=== PATIENT | female | born 2000 | race Caucasian/White ===

== ENCOUNTER 2020-01-25 22:08 | Emergency (ER) | payer OTHER, SELFPAY ==
[2020-01-25 22:11] VITALS: BP 144/74; PULSE 86; RESP 20; TEMP 36.2; O2SAT 100
--- NOTE | 2020-01-25 22:14 | ED_ITS ---
HPI - Allergic Reaction General Chief complaint: Allergic Reaction Stated complaint: possible allergic reaction Time Seen by Provider: 01/25/20 22:13 History of Present Illness HPI narrative: Pruritic rash to the axillae, thighs and back for a few days. Seemed to be getting worse this evening and she had a scratchy feeling in her throat. She took 50 mg benadryl prior to arrival and feels like the rash has improved. She has had similar rashes in the past. No new products, foods, or oth er exposures that she can think of. No SOB, dysphagia, light headedness. Related Data Allergies Allergy/AdvReac Type Severity Reaction Status Date / Time No Known Allergies Allergy Verified 01/25/20 22:27 Review of Systems Review of Systems: All systems reviewed & are unremarkable except as noted in HPI and below Constitutional: Constitutional: Denies chills and Denies fever(s) ENT: Denies dysphagia Cardiovascular: Cardiovascular: Denies chest pain Respiratory: Respiratory: Denies dyspnea Gastrointestinal: Gastrointestinal: Denies nausea Musculoskeletal: Musculoskeletal: Denies myalgias Neurologic: Denies weakness PMFSH Social History Social History (Updated 01/25/20 @ 22:28 by Robert Delcid MD) Smoking status: Never smoker Substance use: never Gender identity (if verbalized by the patient): Female Exam Const: General: healthy appearing, no acute distress and alert Nutritional Appearance: well nourished Orientation/consciousness: patient oriented x3 HENMT: Head: normal to inspection Resp: Effort & Inspection: normal respiratory effort Auscultation: clear to auscultation bilaterally Cardio: Rate: regular rate Rhythm: regular rhythm Skin: Other: mildly erythematous papular rash to bilateral axillae, inguinal creases, and back. Extrem: General: normal to inspection and no edema Course Vital Signs Vital signs: Vital Signs Temperature 36.2 C L 01/25/20 22:11 Pulse Rate 86 01/25/20 22:11 Respiratory Rate 20 01/25/20 22:11 Blood Pressure 144/74 H 01/25/20 22:11 Pulse Oximetry 100 01/25/20 22:11 Temperature 36.2 C L 01/25/20 22:11 Pulse Rate 86 01/25/20 22:11 Respiratory Rate 20 01/25/20 22:11 Blood Pressure 144/74 H 01/25/20 22:11 Pulse Oximetry 100 01/25/20 22:11 MDM - Allergic Reaction MDM Narrative Medical decision making narrative: There is no indication of anaphylaxis or other emergent rash. Unclear what is causing her rash. Will treat as allergic reaction. Discussed the need for follow-up and allergy testing should she c ontinue to experience these type of symptoms. Differential Diagnosis Differential diagnosis: Likely allergic reaction, contact dermatitis and urticaria Discharge Plan Discharge Clinical Impression: Urticaria Patient Disposition: Home, Self-Care Condition: Stable Instructions: Urticaria (ED) Prescriptions: New prednisone 20 mg tablet 60 mg PO DAILY 4 Days Qty: 12 RF: 0 Follow-up/Referrals: UNKNOWN,DOCTOR [Primary Care Provider] -
[2020-01-25] MEDS: predniSONE 20 MG TABLET 60 MG PO (22:27)
== END 2020-01-25 23:00 | disposition home or self-care (01) ==
PROVIDERS: Emergency Provider Emergency Medicine
DX: L50.9 Urticaria, unspecified (principal)
CPT/HCPCS: 99283; J7512

== ENCOUNTER 2020-05-18 13:40 | Emergency (ER) | payer OTHER, SELFPAY ==
[2020-05-18 13:57] VITALS: BP 144/75; PULSE 88; RESP 18; TEMP 36.9; O2SAT 100
--- NOTE | 2020-05-18 14:13 | ED.BACK ---
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 Patient denies other injury or complaint of recent illness. Patient has not taken anything for symptoms and presents per private vehicle in no distress Related Data Allergies Allergy/AdvReac Type Severity Reaction Status Date / Time No Known Allergies Allergy Verified 05/18/20 14:00 Review of Systems Review of Systems: All systems reviewed & are unremarkable except as noted in HPI and below PMFSH Social History Social History Smoking status: Never smoker Substance use: never Gender identity (if verbalized by the patient): Female Exam Narrative: Exam Narrative: GENERAL: Well-appearing, well-nourished, and in no acute distress. HEAD: Normocephalic, atraumatic. EYES: PERRLA and EOMI. ENT: Nares clear, no rhinorrhea or epistaxis. Mucous membranes moist. Oropharynx without tonsillar hypertrophy exudate or other lesions. NECK: Supple. No adenopathy or masses. CHEST: Clear to auscultation. No respiratory distress. No wheezes rales or rhonchi HEART: Regular rate and rhythm. No murmur heard. Normal peripheral pulses. EXTREMITIES: Normal range of motion. No edema. Tenderness of the paraspinal thoracic musculature no deformities noted SKIN: Warm, dry, no rash. NEURO: No focal deficits. Alert and oriented x3. Cranial nerves II through XII grossly intact. Normal speech and gait PSYCH: Normal mood and affect. Course Course Emergency Course: Patient in the room in no distress aware of case findings treatment plan and diagnosis Vital Signs Vital signs: Vital Signs Temperature 98.4 F 05/18/20 13:57 Pulse Rate 88 05/18/20 13:57 Respiratory Rate 18 05/18/20 13:57 Blood Pressure 144/75 H 05/18/20 13:57 Pulse Oximetry 100 05/18/20 13:57 Temperature 98.4 F 05/18/20 13:57 Pulse Rate 88 05/18/20 13:57 Respiratory Rate 18 05/18/20 13:57 Blood Pressure 144/75 H 05/18/20 13:57 Pulse Oximetry 100 05/18/20 13:57 MDM - Back Pain/Injury MDM Narrative Medical decision making narrative: Patients pain is positional in nature and localized to back without signs of cord compression or cauda equina based on neurological exam, skeletal exam and history. No fever or other significant factors to suggest osteomyelitis or spinal epidural abscess. No symptoms or signs to suggest pain is referred from abdominal or / cardiopulmonary sources. No pulsatile masses noted on exam. Patient ambulates with steady gait and is stable for outpatient management given case findings. Discharge Plan Discharge Clinical Impression: Back pain, thoracic Patient Disposition: Home, Self-Care Condition: Stable Instructions: Antibiotic Form, Thoracic Back Strain (ED) Additional Instructions: Follow up with your primary care provider within 5-7 days. Go to ER for shortness of breath, difficulty breathing, chest pain, fever/chills, weakness, nauseau/vomitting, etc. or any other concerns. Take any prescribed medications as directed. If you do not have a drug allergy to tylenol or motrin and can tolerate it then take tylenol or motrin as needed for discomfort/pain. Prescriptions: New ibuprofen [IBU] 600 mg tablet 600 mg PO QID PRN (Reason: fever or pain) Qty: 7 RF: 0 cyclobenzaprine 10 mg tablet 10 mg PO TID PRN (Reason: muscle spasm) Qty: 10 RF: 0 No Action prednisone 20 mg tablet 60 mg PO DAILY 4 Days Qty: 12 RF: 0 Follow-up/Referrals: Ani Alvarez MD [
[2020-05-18 14:30] VITALS: BP 120/70; PULSE 80; RESP 20; O2SAT 99
[2020-05-18] MEDS: KETOROLAC (*BKC) 60 MG/2 ML VIAL IM (14:30)
== END 2020-05-18 14:31 | disposition home or self-care (01) ==
LOC: ANHED 14:21
PROVIDERS: Emergency Provider Emergency Medicine
DX: M54.6 Pain in thoracic spine (principal)
CPT/HCPCS: 96372; 99283; J1885

== ENCOUNTER 2020-06-12 14:00 | Emergency (ER) | payer OTHER, SELFPAY ==
--- NOTE | ~2020-06-12 | CT_ITS ---
EXAMINATION: CT abdomen pelvis w con INDICATION: Lower abdominal pain TECHNIQUE: Computed tomographic images of the abdomen and pelvis were obtained after the administrati on of 100 cc of Omnipaque 350 intravenous contrast. The dose-length product (DLP) was 797.60 mGy-cm. Automated exposure control and iterative reconstruction technique were employed. COMPARISON: None available FINDINGS: The lung bases are clear. The heart size is normal. The liver, spleen, pancreas, gallbladde r, and adrenal glands are normal. The kidneys are unremarkable. No pathologically enlarged abdominal or pelvic lymph nodes are identified. There is no free intraperitoneal gas or evidence of bowel obstr uction. The appendix is normal. A small amount of free fluid in the pelvis is likely physiologic. IMPRESSION: 1. No CT correlate for the patient's symptoms. Reviewed, dictated and finalized at location A.
--- NOTE | ~2020-06-12 | XR_ITS ---
EXAMINATION: XR chest 2V DATE: 06/12/2020 19:23 INDICATION: Chest tightness TECHNIQUE: PA and lateral views of the chest are obtained. COMPARISON: None available FINDINGS: The lungs are free of acute opacities. There is no pleural effusion or pneumothorax. The ca rdiomediastinal silhouette is normal. The visualized bones and soft tissues are unremarkable. IMPRESSION: 1. No acute cardiopulmonary abnormality. Reviewed, dictated and finalized at location A.
[2020-06-12 14:28] VITALS: BP 142/94; PULSE 112; RESP 20; TEMP 37.2; O2SAT 99
--- NOTE | 2020-06-12 15:19 | ECG_ITS ---
Measurements Intervals [place] Rate: 74 P: 14 NC: 144 QRS: 66 QRSD: 93 T: 11 QT: 374 QTc: 417 Interpretive Statements SINUS RHYTHM WITH SINUS ARRHYTHMIA POSSIBLE LEFT ATRIAL ENLARGEMENT BORDERLINE ECG Electronically Signed On 06-12-2020 16:14:59 CDT by Harish Pineda D.O.
[2020-06-12 15:34] LABS: Basophils Absolute Auto 0.1 K/mm3 (0.0-0.1); Basophils Percent Auto 0.6 % (0.2-1.2); Eosinophils Absolute Auto 0.1 K/mm3 (0-0.3); Eosinophils Percent Auto 0.5 % (0-4.4); Hematocrit 40.6 % (37.0-47.0); Hemoglobin 13.6 g/dL (12.0-15.0); Immature Granulocyte Absolute 0.04 K/mm3 (0.00-0.031); Immature Granulocyte Percent A 0.3 % (0-0.5); Lymphocytes Absolute Auto 3.33 K/mm3 (0.9-3.2); Lymphocytes Percent Auto 22.6 % (18.3-44.2); Mean Corpuscular HGB Conc 33.5 g/dl (32-36); Mean Corpuscular Volume 86.6 fl (80-100); Monocytes Absolute Auto 0.7 K/mm3 (0.1-0.6); Monocytes Percent Auto 4.6 % (2.6-8.5); Neutrophils Absolute Auto 10.5 K/mm3 (1.3-6.7); Neutrophils Percent Auto 71.4 % (45.5-73.1); Platelet Count Result 365 k/mm3 (150-375); Red Blood Count 4.69 M/mm3 (4.2-5.4); Red Cell Distribution Width 12.4 % (11.5-14.5); White Blood Count 14.7 K/mm3 (4.5-10.0)
[2020-06-12 15:48] LABS: Blood Urea Nitrogen 9 mg/dL (8-21); Calcium 9.5 mg/dL (8.9-10.7); Carbon Dioxide 24 mmol/L (22-30); Chloride 103 mmol/L (98-107); Estimated CRCL calculation 143 ml/min; Estimated Glomerular Filt Rate > 60; Glucose 98 mg/dL (65-105); Potassium 3.8 mmol/L (3.4-5.0); Sodium 138 mmol/L (134-143)
[2020-06-12 16:33] VITALS: BP 139/77; PULSE 88; RESP 24; O2SAT 98
--- NOTE | 2020-06-12 17:07 | ED.SYNCOPE ---
HPI - Syncope General Chief Complaint: Syncope <Fifi Ordoñez MD - Last Filed: 06/17/20 06:59> Stated Complaint: syncope at work, refused ems transport <Fifi Ordoñez MD - Last Filed: 06/17/20 06:59> Time Seen by Provider: 06/12/20 16:14 <Fifi Ordoñez MD - Last Filed: 06/17/20 06:59> Source: patient <Fifi Ordoñez MD - Last Filed: 06/17/20 06:59> Mode of arrival: ambulatory <Fifi Ordoñez MD - Last Filed: 06/17/20 06:59> Limitations: no limitations <Fifi Ordoñez MD - Last Filed: 06/17/20 06:59> History of Present Illness HPI narrative: This patient is a 19 year old female who presents for evaluation of possible syncopal episodes. 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 She states she turned her head to the left and then turn it back . This caused her to become developed ringing in her ears, nausea and lightheadedness. Then she reports she started breathing fast and she does not remember what happened after that. She states her client reported that she did not lose consciousness. She was just hyperventilating and stating im going to pass out. Patient developed numbness and tingling all over her body so they called 911. She reports reports mild chest pain. She reports last week she passed out from a panic attack. <Fifi Ordoñez MD - Last Filed: 06/17/20 06:59> Related Data Allergies/Adverse Reactions: Allergies Allergy/AdvReac Type Severity Reaction Status Date / Time No Known Allergies Allergy Verified 05/18/20 14:00 <Fifi Ordoñez MD - Last Filed: 06/17/20 06:59> Review of Systems Review of Systems: All systems reviewed & are unremarkable except as noted in HPI and below <Fifi Ordoñez MD - Last Filed: 06/17/20 06:59> Constitutional: Constitutional: Denies chills, Reports fatigue and Denies fever(s) <Fifi Ordoñez MD - Last Filed: 06/17/20 06:59> ENT: Reports dizziness, Denies nasal congestion and Reports tinnitus <Fifi Ordoñez MD - Last Filed: 06/17/20 06:59> Cardiovascular: Cardiovascular: Reports chest pain <Fifi Ordoñez MD - Last Filed: 06/17/20 06:59> Respiratory: Respiratory: Denies chest congestion, Denies cough, Reports dyspnea and Denies wheezing <Fifi Ordoñez MD - Last Filed: 06/17/20 06:59> Gastrointestinal: Gastrointestinal: Reports abdominal pain (chronic) and Reports nausea <Fifi Ordoñez MD - Last Filed: 06/17/20 06:59> Genitourinary: Genitourinary: Reports vaginal discharge <Fifi Ordoñez MD - Last Filed: 06/17/20 06:59> Neurologic: Reports syncope and Reports numbness <Fifi Ordoñez MD - Last Filed: 06/17/20 06:59> PMFSH Past Medical History Medical History: Medical History (Updated 06/13/20 @ 00:00 by Vicente Burns) Anxiety Constipation Overweight <Fifi Ordoñez MD - Last Filed: 06/17/20 06:59> Social History Social History: Social History Smoking status: Never smoker Substance use: never Gender identity (if verbalized by the patient): Female <Fifi Ordoñez MD - Last Filed: 06/17/20 06:59> Exam Narrative: Exam Narrative: GENERAL: Well-appearing, well-nourished, and in no acute distress. HEAD: Normocephalic, atraumatic EYES: PERRLA and EOMI, conjunctiva clear without discharge EARS: TM's clear bilaterally without erythema or dullness NOSE: Nares clear, no rhinorrhea or epistaxis THROAT:Mucous membranes moist, Oropharynx normal without erythema, exudate, peritonsillar swelling or fluctuance NECK: Supple, without lymphadenopathy or mass RESPIRATORY: No respiratory distress, Airway patent, Respirations non-labored, Clear to auscultation without rales, rhonchi or wheeze HEART: Regular rate and rhythm. No murmur heard. Normal peripheral pulses. ABDOMEN: Soft, lower abdominal tenderness, nondistended, normal active bowel sounds. No masses. No rebound or guarding
[2020-06-12] MEDS: SODIUM CHLORIDE 0.9% IV 1,000 ML 999 ML IV CONT (17:54)
[2020-06-12 18:08] LABS: Add Urine Microscopic? YES; Appearance Urine Clear (Clear); Bacteria Urine Trace /hpf; Bilirubin Urine Negative (Negative); Blood Urine Negative (Negative); Color Urine Colorless (Yellow); Glucose Urine UA Negative (Negative); Ketones Urine Negative (Negative); Leukocyte Esterase Ur 1+ LEU/UL (Negative); Nitrate Urine Negative (Negative); Protein Urine Negative (Negative); RBC Urine 0-2 /hpf (0-2); Specific Grav Ur 1.008 (1.001-1.035); Squamous Epithelial Cell Urine Many /hpf (Few); Urobilinogen Urine Negative mg/dL (<2.0); WBC Urine 0-3 /hpf
[2020-06-12 18:09] LABS: Prothrombin Time 13.2 Seconds (11.1-14.7)
[2020-06-12 18:12] LABS: Magnesium 1.8 mg/dL (1.6-2.3)
[2020-06-12 18:17] LABS: D Dimer 0.25 ug/mL (<0.48)
[2020-06-12 18:31] VITALS: BP 124/79; BP 137/76; BP 144/91; PULSE 78; PULSE 80; PULSE 86
[2020-06-12 20:06] VITALS: BP 127/81; PULSE 92; RESP 17; O2SAT 99
== END 2020-06-12 20:10 | disposition home or self-care (01) ==
PROVIDERS: Emergency Medicine; General Practice; Emergency Provider Emergency Medicine
DX: R55 Syncope and collapse (principal); R10.9 Unspecified abdominal pain; K59.00 Constipation, unspecified
CPT/HCPCS: 36415; 71046; 74177; 80048; 81001; 81025; 83735; 85025; 85380; 85610; 85730; 93005; 96360; 99284; J7030; Q9967

== ENCOUNTER 2020-11-23 05:12 | Emergency (ER) | payer OTHER, SELFPAY ==
--- NOTE | ~2020-11-23 | CT_ITS ---
EXAMINATION: CT abdomen pelvis w con DATE: 11/23/2020 06:38 INDICATION: Abdominal pain TECHNIQUE: Computed tomography (CT) of the abdomen and pelvis was performed with 100 mL Omnipaque-350 intravenous contrast. Automated exposure control and iterative reconstruction technique were employe d. The dose-length product was 771.01 mGy-cm. COMPARISON: 06/12/2020 FINDINGS: Lung bases are clear. Heart size is normal. No pericardial or pleural effusion. Liver, gallbladder, s pleen, pancreas, bilateral adrenal glands and kidneys are normal. Bladder and anteverted uterus are n ormal. 2.3 cm right ovarian cyst. There is a small collection of fluid in the cul-de-sac measuring 6. 7 x 5.1 x 3.1 cm. A subtle tiny jet of contrast consistent with active extravasation is seen arising from the left adnexa. The previously seen left ovarian cyst is no longer visualized. The ovaries aren 't same position as on the prior study and again seen is contrast enhancement of the bilateral gon[place] l veins. No abscess or free intraperitoneal gas. No pathologically enlarged abdominal or pelvic lymph adenopathy. Minimal thoracolumbar spondylosis. IMPRESSION: 1. Small amount of hemoperitoneum in the cul-de-sac with active extravasation from the left ovary lik florentino related to ruptured ovarian cyst. Reviewed, dictated and finalized at location A. [employer] IMPRESSION: 1. Small amount of hemoperitoneum in the cul-de-sac with active extravasation f rom the left ovary likely related to ruptured ovarian cyst.
[2020-11-23 05:24] VITALS: BP 122/69; PULSE 116; RESP 21; TEMP 36.8; O2SAT 100
--- NOTE | 2020-11-23 05:52 | ED.GENADULT ---
HPI - General Adult General Chief complaint: Abdominal Pain <Carlito Stockton MD - Last Filed: 11/23/20 07:18> Stated complaint: abdominal pain-unable to walk <Carlito Stockton MD - Last Filed: 11/23/20 07:18> Time Seen by Provider: 11/23/20 05:28 <Carlito Stockton MD - Last Filed: 11/23/20 07:18> History of Present Illness HPI narrative: Patient is a 20-year-old female who presents the emergency department with chief complaint of abdominal pain. Patient states that she has pain in the bilateral lower quadrant states that sharp started this morning and has become so painful that it hurts whenever she walks and states that she is not really able to walk because of the pain. Patient reports that all but a nausea with it denies fever denies vaginal discharge reports her last menstrual period was the first part of October. Patient reports she has prior history of polycystic ovarian disease and has had ruptured ovarian cyst before in the past. <Carlito Stockton MD - Last Filed: 11/23/20 07:18> Related Data Allergies/adverse reactions: Allergies Allergy/AdvReac Type Severity Reaction Status Date / Time No Known Allergies Allergy Verified 11/23/20 05:12 <Carlito Stockton MD - Last Filed: 11/23/20 07:18> Review of Systems Review of Systems: Narrative: A 10 system review of systems was completed on the patient and is negative except for what is stated in the HPI. Nursing and ancillary documentation was reviewed. <Carlito Stockton MD - Last Filed: 11/23/20 07:18> [facility] Past Medical History Medical History: Medical History Anxiety Constipation Overweight <Carlito Stockton MD - Last Filed: 11/23/20 07:18> Social History Social History: Social History Smoking status: Never smoker Substance use: never Gender identity (if verbalized by the patient): Female <Carlito Stockton MD - Last Filed: 11/23/20 07:18> Exam Narrative: Exam Narrative: GENERAL: Well-appearing, well-nourished, and in no acute distress. HEAD: Normocephalic, atraumatic. EYES: PERRLA and EOMI. ENT: Nares clear, no rhinorrhea or epistaxis. Mucous membranes moist. NECK: Supple. CHEST: Clear to auscultation. No respiratory distress. HEART: Regular rate and rhythm. No murmur heard. Normal peripheral pulses. ABDOMEN: Soft, bilateral lower quadrant tenderness, nondistended, normal active bowel sounds. EXTREMITIES: Normal range of motion. No edema. SKIN: Warm, dry, no rash. NEURO: No focal deficits. Alert and oriented x3. PSYCH: Normal mood and affect. <Carlito Stockton MD - Last Filed: 11/23/20 07:18> Course Vital Signs Vital signs: Vital Signs Temperature 36.8 C 11/23/20 05:24 Pulse Rate 116 H 11/23/20 05:24 Respiratory Rate 21 H 11/23/20 05:24 Blood Pressure 122/69 11/23/20 05:24 Pulse Oximetry 100 11/23/20 05:24 Temperature 36.8 C 11/23/20 05:24 Pulse Rate 116 H 11/23/20 05:24 Respiratory Rate 21 H 11/23/20 05:24 Blood Pressure 122/69 11/23/20 05:24 Pulse Oximetry 100 11/23/20 05:24 <Carlito Stockton MD - Last Filed: 11/23/20 07:18> Vital Signs Temperature 36.8 C 11/23/20 05:24 Pulse Rate 116 H 11/23/20 05:24 Respiratory Rate 21 H 11/23/20 05:24 Blood Pressure 122/69 11/23/20 05:24 Pulse Oximetry 100 11/23/20 05:24 Temperature 36.8 C 11/23/20 05:24 Pulse Rate 116 H 11/23/20 05:24 Respiratory Rate 21 H 11/23/20 05:24 Blood Pressure 122/69 11/23/20 05:24 Pulse Oximetry 100 11/23/20 05:24 <Darline Lynne MD - Last Filed: 11/23/20 08:56> Medical Decision Making Vital Signs Vital Signs: Vital Signs Temperature 36.8 C 11/23/20 05:24 Pulse Rate 116 H 11/23/20 05:24 Respiratory Rate 21 H 11/23/20 05
[2020-11-23] MEDS: SODIUM CHLORIDE 0.9% IV 1,000 ML 999 ML IV CONT (05:59)
[2020-11-23] MEDS: ONDANSETRON INJ 4 MG/2 ML VIAL IV PUSH (06:01)
[2020-11-23 06:14] LABS: Basophils Absolute Auto 0.1 K/mm3 (0.0-0.1); Eosinophils Absolute Auto 0.1 K/mm3 (0-0.3); Eosinophils Percent Auto 1.3 % (0-4.4); Hematocrit 36.6 % (37.0-47.0); Hemoglobin 12.2 g/dL (12.0-15.0); Immature Granulocyte Absolute 0.02 K/mm3 (0.00-0.031); Immature Granulocyte Percent A 0.3 % (0-0.5); Lymphocytes Absolute Auto 3.81 K/mm3 (0.9-3.2); Lymphocytes Percent Auto 56.4 % (18.3-44.2); Mean Corpuscular HGB Conc 33.3 g/dl (32-36); Mean Corpuscular Hemoglobin 28.3 pg (26-34); Mean Corpuscular Volume 84.9 fl (80-100); Mean Platelet Volume 9.6 fl (7.4-10.4); Monocytes Absolute Auto 0.5 K/mm3 (0.1-0.6); Neutrophils Absolute Auto 2.3 K/mm3 (1.3-6.7); Platelet Count Result 236 k/mm3 (150-375); Red Blood Count 4.31 M/mm3 (4.2-5.4); Red Cell Distribution Width 12.9 % (11.5-14.5); White Blood Count 6.8 K/mm3 (4.5-10.0)
[2020-11-23 06:16] LABS: Add Urine Microscopic? NO; Appearance Urine Clear (Clear); Bilirubin Urine Negative (Negative); Blood Urine Negative (Negative); Color Urine Yellow (Yellow); Glucose Urine UA Negative (Negative); Ketones Urine Negative (Negative); Leukocyte Esterase Ur Negative LEU/UL (Negative); Nitrate Urine Negative (Negative); Protein Urine Negative (Negative); Specific Grav Ur 1.023 (1.001-1.035); Urobilinogen Urine Negative mg/dL (<2.0)
[2020-11-23 06:27] LABS: Alanine Aminotransferase 18 U/L (4-35); Albumin Level 3.9 g/dL (3.5-5.1); Alkaline Phosphatase 45 U/L (38-126); Anion Gap 8 mmol/L (8-16); Aspartate Amino Transferase 19 U/L (14-36); Bilirubin,Total 0.3 mg/dL (0.2-1.3); Blood Urea Nitrogen 11 mg/dL (7-17); Calcium 8.5 mg/dL (8.4-10.2); Carbon Dioxide 24 mmol/L (22-30); Chloride 106 mmol/L (98-107); Estimated CRCL calculation 123 ml/min; Estimated Glomerular Filt Rate > 60; Glucose 102 mg/dL (65-105); Lipase 92 U/L (23-300); Potassium 3.7 mmol/L (3.4-5.0); Sodium 138 mmol/L (137-145)
[2020-11-23 09:05] VITALS: BP 120/78; PULSE 96; RESP 15; O2SAT 100
== END 2020-11-23 09:07 | disposition home or self-care (01) ==
PROVIDERS: Emergency Medicine; Emergency Provider Emergency Medicine
DX: R10.32 Left lower quadrant pain (principal); R10.31 Right lower quadrant pain; E28.2 Polycystic ovarian syndrome; E66.3 Overweight; Z68.33 Body mass index [BMI] 33.0-33.9, adult
CPT/HCPCS: 36415; 74177; 80053; 81003; 81025; 83605; 83690; 85025; 96361; 96374; 99284; J2405; J7030; Q9967

== ENCOUNTER 2021-01-09 18:53 | Emergency (ER) | payer OTHER, SELFPAY ==
--- NOTE | 2021-01-09 19:09 | ED.URI ---
HPI - URI/Sore Throat General Chief Complaint: Upper Respiratory Infection Stated Complaint: upper respiratory infection Time Seen by Provider: 01/09/21 19:11 Source: patient Mode of arrival: ambulatory Limitations: no limitations History of Present Illness HPI Narrative: 20-year-old female presents with concern for body aches, headache, fatigue, general malaise, nausea. Reports symptoms started 2 days ago. Reports she has been taking Tylenol with little relief. Reports chest pain, reports she frequently has chest pain from gas and gallbladder problems, has no history of cardiac disorders. Denies cough, shortness of breath, loss of sense of taste or smell, vomiting, diarrhea. MD elicited complaint: sore throat Related Data Home Medications Medication Instructions Recorded Confirmed norethindrone-e.estradiol-iron 1 tablet DAILY 01/09/21 01/09/21 [[place] Fe 1.5/30 (28)] spironolactone 25 mg DAILY 01/09/21 01/09/21 Allergies Allergy/AdvReac Type Severity Reaction Status Date / Time No Known Allergies Allergy Verified 11/23/20 05:12 Review of Systems Review of Systems: Narrative: CONSTITUTIONAL: Reports malaise, fatigue. Denies chills, sweats, or fever. EYES: Denies visual changes, redness, or discharge. ENT: Denies rhinorrhea, congestion, sinus pain, otalgia. Reports sore throat. CARDIOVASCULAR: Report chest pain. Denies palpitations, or edema. RESPIRATORY: Denies cough or dyspnea. GASTROINTESTINAL: Denies abdominal pain, vomiting, diarrhea. Reports nausea, SKIN: Denies rash or itching. MUSCULOSKELETAL: Reports myalgia. NEUROLOGIC: Reports headache. All systems reviewed & are unremarkable except as noted in HPI and below PMFSH Past Medical History Medical History Anxiety Constipation Overweight Social History Social History Smoking status: Never smoker Substance use: never Gender identity (if verbalized by the patient): Female Comments At time of signature, agree with nursing past medical, surgical, social and family history. There is no relevant family history pertinent to the presenting complaint Exam Narrative: Exam Narrative: GENERAL: Well-appearing, well-nourished, and in no acute distress. HEAD: Normocephalic EYES: PERRLA, conjunctivae clear ENT: Nares clear, turbinates erythematous, clear discharge. Mucous membranes moist. TM pearly guillermo with sharp light reflex bilaterally; no tragal tenderness. Oropharynx pain not erythematous without lesions. Tonsils not enlarged and without exudate, no drooling, no hoarseness, no trismus, uvula midline. NECK: Supple. No lymphadenopathy CHEST: Clear to auscultation, breath sounds equal. No wheezing, rhonchi, rales, or stridor. No respiratory distress, speaks in full sentences. HEART: Regular rate and rhythm. No murmur heard. SKIN: Warm, dry, no rash. NEURO: Alert and oriented x3. PSYCH: Normal mood and affect Course Course Emergency Course: Patient is aware of diagnosis, understands and agrees to treatment plan. Anticipatory guidance given. Patient agrees to follow-up as directed and is aware of reasons to seek care at the emergency department. Portions of this record may have been created with voice recognition software Vital Signs Vital signs: Reviewed. MDM - URI/Sore Throat MDM Narrative Medical decision making narrative: Differential diagnosis considered: Macario virus, strep pharyngitis, allergic rhinitis, upper respiratory tract infection, sinusitis, rhinosinusitis, nasopharyngitis. viral pharyngitis, otitis media, otitis externa, pneumonia, bronchitis, viral cough syndrome, viral syndrome, and influenza. Exam findings and EKG show no acute concerns or changes; patient is non-toxic appearing and is in no distress. Patient is appropriate for outpatient treatment and follow-up. ECG Data EKG #1: ECG completion date:
[2021-01-09 19:12] VITALS: BP 135/86; PULSE 100; RESP 18; TEMP 37.2; O2SAT 99
--- NOTE | 2021-01-09 19:26 | ECG_ITS ---
Measurements Intervals [place] Rate: 95 P: 30 DC: 148 QRS: 70 QRSD: 90 T: -3 QT: 332 QTc: 418 Interpretive Statements SINUS RHYTHM POSSIBLE LEFT ATRIAL ENLARGEMENT MINIMAL Q WAVES- INFERIOR LEADS BORDERLINE ST-T WAVE ABNORMALITY- ANT/INF LEADS BORDERLINE ECG Electronically Signed On 01-10-2021 13:07:22 [employer] by Harish Pineda D.O.
== END 2021-01-09 19:31 | disposition home or self-care (01) ==
PROVIDERS: Emergency Provider Nurse Practitioner
DX: U07.1 COVID-19 (principal)
CPT/HCPCS: 87081; 87426; 87880; 93005; 99213; C9803; G0463

== ENCOUNTER 2021-06-27 13:17 | Emergency (ER) | payer OTHER, SELFPAY ==
--- NOTE | ~2021-06-27 | CT_ITS ---
EXAMINATION: CT abdomen pelvis w con INDICATION: Lower abdominal pain TECHNIQUE: Computed tomographic images of the abdomen and pelvis were obtained after the administrati on of 100 cc of Omnipaque 350 intravenous contrast. The dose-length product (DLP) was 707.72 mGy-cm. Automated exposure control and iterative reconstruction technique were employed. COMPARISON: 11/23/2020 FINDINGS: The lung bases are clear. The heart size is normal. The liver, spleen, pancreas, gallbladde r, and adrenal glands are normal. The kidneys are unremarkable. No pathologically enlarged abdominal or pelvic lymph nodes are identified. There is no free intraperitoneal gas or evidence of bowel obstr uction. The appendix is normal. A moderate volume of colonic stool is present. There is a 3.2 cm cys t of the right ovary. IMPRESSION: 1. No CT correlate for the patient's symptoms. Reviewed, dictated and finalized at location A.
[2021-06-27 13:19] VITALS: BP 151/84; PULSE 90; RESP 16; TEMP 37.2; O2SAT 99
[2021-06-27 13:36] LABS: Basophils Absolute Auto 0.1 K/mm3 (0.0-0.1); Basophils Percent Auto 0.6 % (0.2-1.2); Eosinophils Absolute Auto 0.1 K/mm3 (0-0.3); Eosinophils Percent Auto 0.8 % (0-4.4); Hematocrit 38.5 % (37.0-47.0); Hemoglobin 12.5 g/dL (12.0-15.0); Immature Granulocyte Absolute 0.02 K/mm3 (0.00-0.031); Immature Granulocyte Percent A 0.2 % (0-0.5); Lymphocytes Absolute Auto 4.32 K/mm3 (0.9-3.2); Lymphocytes Percent Auto 46.6 % (18.3-44.2); Mean Corpuscular HGB Conc 32.5 g/dl (32-36); Mean Corpuscular Hemoglobin 28.3 pg (26-34); Mean Corpuscular Volume 87.1 fl (80-100); Mean Platelet Volume 9.6 fl (7.4-10.4); Monocytes Absolute Auto 0.6 K/mm3 (0.1-0.6); Monocytes Percent Auto 6.9 % (2.6-8.5); Neutrophils Absolute Auto 4.2 K/mm3 (1.3-6.7); Neutrophils Percent Auto 44.9 % (45.5-73.1); Platelet Count Result 300 k/mm3 (150-375); Red Blood Count 4.42 M/mm3 (4.2-5.4); Red Cell Distribution Width 11.9 % (11.5-14.5); White Blood Count 9.3 K/mm3 (4.5-10.0)
[2021-06-27 13:44] LABS: Add Urine Microscopic? NO; Appearance Urine Clear (Clear); Bilirubin Urine Negative (Negative); Blood Urine Negative (Negative); Color Urine Yellow (Yellow); Glucose Urine UA Negative (Negative); Ketones Urine Negative (Negative); Leukocyte Esterase Ur Negative LEU/UL (Negative); Nitrate Urine Negative (Negative); Protein Urine Negative (Negative); Specific Grav Ur 1.019 (1.001-1.035); Urobilinogen Urine Negative mg/dL (<2.0)
[2021-06-27 13:55] LABS: Alanine Aminotransferase 18 U/L (4-35); Albumin Level 4.4 g/dL (3.5-5.1); Alkaline Phosphatase 53 U/L (38-126); Anion Gap 10 mmol/L (8-16); Aspartate Amino Transferase 23 U/L (14-36); Bilirubin,Total 0.2 mg/dL (0.2-1.3); Blood Urea Nitrogen 11 mg/dL (7-17); Calcium 9.2 mg/dL (8.4-10.2); Carbon Dioxide 23 mmol/L (22-30); Chloride 102 mmol/L (98-107); Estimated CRCL calculation 142 ml/min; Estimated Glomerular Filt Rate > 60; Glucose 102 mg/dL (65-110); Lipase 130 U/L (23-300); Potassium 3.7 mmol/L (3.4-5.0); Sodium 135 mmol/L (137-145)
--- NOTE | 2021-06-27 14:25 | ED.ABDPAIN ---
HPI - Abdominal Pain General Chief Complaint: Abdominal Pain Stated Complaint: abd pain Time Seen by Provider: 06/27/21 13:56 Source: patient and RN notes reviewed Mode of arrival: ambulatory Limitations: no limitations History of Present Illness HPI narrative: This is a 21 year old female with history of polycystic ovarian syndrome who presents for evaluation of diffuse abdominal pain . She states she has been dealing with pain for 4 days. Her pain seems be located in bilateral lower quadrants and it radiates to her lower back and her shoulder blades. She states pain is not as severe as previous episodes of ovarian cyst ruptures. She states it feels like mixture of cyst with stomach flu. She reports nausea but denies vomiting or diarrhea. She has not had a bowel movement in 2 days but she states that is normal for her. She denies fever or chills. She was evaluated at an urgent care 4 days ago and she was diagnosed with UTI and yeast infection. She states at that time she had completed antibiotics for an infected axillary cyst and she was having vaginal discharge. She also reports she was having increased urinary urgency and frequency. Related Data Home Medications Medication Instructions Recorded Confirmed norethindrone-e.estradiol-iron 1 tablet DAILY 01/09/21 01/09/21 [Blisovi Fe 1.5/30 (28)] spironolactone 25 mg DAILY 01/09/21 01/09/21 Allergies Allergy/AdvReac Type Severity Reaction Status Date / Time No Known Allergies Allergy Verified 06/27/21 13:25 Review of Systems Review of Systems: All systems reviewed & are unremarkable except as noted in HPI and below PMFSH Past Medical History Medical History Anxiety Constipation Overweight Social History Social History Smoking status: Never smoker Substance use: never Gender identity (if verbalized by the patient): Female Exam Const: General: no acute distress and alert Orientation/consciousness: patient oriented x3 Eyes: EOM: EOMs intact bilaterally Resp: Effort & Inspection: normal respiratory effort and no retractions Auscultation: clear to auscultation bilaterally Cardio: Rate: regular rate Rhythm: regular rhythm GI: GI Palp: Yes Soft to palpation, Yes Tenderness to palpation present (GI) (Bilateral upper quadrant, epigastric, RLQ), No Guarding due to palpation present (GI) and No Rigid due to palpation Auscultation: normal bowel sounds Skin: General skin exam: normal color Rashes: no rashes Neuro: General: patient oriented x3, moves all extremities and CN's II-XI intact bilaterally Psych: Mental Status: mental status grossly normal Affect: normal affect Course Reevaluation(s) Reevaluation #1: I Discussed with patient CT findings of constipation and right ovarian cyst. She will follow up with launch steward. Date: 06/27/21 Time: 15:58 Vital Signs Vital signs: Vital Signs Temperature 98.9 F 06/27/21 13:19 Pulse Rate 90 06/27/21 13:19 Respiratory Rate 16 06/27/21 13:19 Blood Pressure 151/84 H 06/27/21 13:19 Pulse Oximetry 99 06/27/21 13:19 Temperature 98.9 F 06/27/21 13:19 Pulse Rate 81 06/27/21 16:27 Respiratory Rate 14 06/27/21 16:27 Blood Pressure 132/71 06/27/21 16:27 Pulse Oximetry 99 06/27/21 16:27 MDM - Abdominal Pain Lab Data Attestation: I reviewed the patient's lab results. Result diagrams: 06/27/21 13:29 06/27/21 13:29 Labs: Lab Results 06/27/21 06/27/21 06/27/21 Range/Units 13:29 13:29 13:32 WBC 9.3 (4.5-10.0) K/mm3 RBC 4.42 (4.2-5.4) M/mm3 Hgb 12.5 (12.0-15.0) g/dL Hct 38.5 (37.0-47.0) % MCV 87.1 (80-100) fl MCH 28.3 (26-34) pg MCHC 32.5 (32-36) g/dl RDW 11.9 (11.5-14.5) % Plt Count 300 (150-375) k/mm3 MPV 9.6 (7.4-10.4) fl Immature Gran % (Auto) 0.2 (0-0.5) %
[2021-06-27] MEDS: SODIUM CHLORIDE 0.9% IV 1,000 ML 999 ML IV CONT (14:40)
[2021-06-27] MEDS: ONDANSETRON INJ 4 MG/2 ML VIAL IV PUSH (14:40)
[2021-06-27 16:27] VITALS: BP 132/71; PULSE 81; RESP 14; O2SAT 99
== END 2021-06-27 16:29 | disposition home or self-care (01) ==
PROVIDERS: Emergency Medicine; Emergency Provider General Practice
DX: N83.201 Unspecified ovarian cyst, right side (principal); K59.00 Constipation, unspecified; E66.3 Overweight; Z68.32 Body mass index [BMI] 32.0-32.9, adult
CPT/HCPCS: 36415; 74177; 80053; 81003; 81025; 83690; 85025; 96361; 96374; 99284; J2405; J7030; Q9967

== ENCOUNTER 2023-06-02 17:43 | Emergency (ER) | payer OTHER, SELFPAY ==
--- NOTE | 2023-06-02 17:55 | ED.URI ---
HPI - URI/Sore Throat General Chief Complaint: Ear Stated Complaint: sorethroatlt earache Time Seen by Provider: 06/02/23 17:55 Source: patient Mode of arrival: ambulatory Limitations: no limitations History of Present Illness HPI Narrative: Patient is a 22-year-old female who presents with left ear pain and sore throat 2 days. Patient states she has had intermittent ear pressure, ear popping and dizziness related to ear pain for months. Patient states she has previously had an ENT doctor and was told she needed surgery but declined at that time. Patient recently went to the dentist and had no cavities or infections. Patient also reports left-sided migraine with pressure behind her eye ball for 3 days. Patient has taken ibuprofen with no relief. Reports some nausea related to migraine pain Related Data Home Medications Medication Instructions Recorded Confirmed famotidine 20 mg tablet (Pepcid) 20 mg PO DAILY 06/02/23 06/02/23 fluticasone propionate 50 2 spray intranasal DAILY 06/02/23 06/02/23 mcg/actuation nasal spray,suspension (Children's Flonase Allergy Relief) norethindrone 1.5 mg-ethinyl 1 tablet PO DAILY 06/02/23 06/02/23 estradiol 30 mcg(21)/iron 75 mg(7) tablet (Junel FE 1.5/30 (28)) Allergies Allergy/AdvReac Type Severity Reaction Status Date / Time No Known Allergies Allergy Verified 06/02/23 18:04 Review of Systems Review of Systems: All systems reviewed & are unremarkable except as noted in HPI and below Constitutional: Constitutional: Denies body ache(s), Denies chills, Denies fatigue, Denies fever(s), Reports headache(s), Denies malaise and Denies weakness Eyes: Eyes: Denies blurry vision, Denies itchy eyes and Denies loss of vision ENT: Reports otalgia, Denies headache(s), Denies nasal congestion, Denies sinus pain and Reports sore throat Cardiovascular: Cardiovascular: Denies chest pain, Denies irregular heart rhythm and Denies dyspnea Respiratory: Respiratory: Denies cough and Denies dyspnea Gastrointestinal: Gastrointestinal: Denies abdominal pain, Denies diarrhea, Reports nausea and Denies vomiting Musculoskeletal: Musculoskeletal: Denies back pain, Denies myalgias and Denies arthralgias Integumentary/Breasts: Skin/Breast: Denies pruritus and Denies rash Neurologic: Reports headache(s), Denies loss of vision and Denies weakness Psychiatric: Psychiatric: Reports no additional psychiatric complaints Endocrine: Endocrine: Denies fatigue Allergic/Immunologic: Allergic/Immunologic: Denies itchy eyes PMFSH Past Medical History Medical History Anxiety Constipation Overweight Social History Social History Smoking status: Never smoker Substance use: never Gender identity (if verbalized by the patient): Female Comments At time of signature, agree with nursing past medical, surgical, social and family history. There is no relevant family history pertinent to the presenting complaint. Exam Const: General: cooperative, healthy appearing, comfortable, no acute distress and well nourished Nutritional Appearance: well nourished Orientation/consciousness: patient oriented x3 Limitations: no limitations HENMT: Head: normal to inspection, normocephalic and atraumatic Ears: hearing grossly normal bilaterally, external ears normal, TM's normal bilaterally, no periauricular adenopathy and Abnormal EAC present erythema on the left and EAC tenderness on the left Face/Nose/Sinus: Normal external nose present, Abnormal mucous membranes and turbinates present erythematous bilateral and diffuse, normal facial exam, sinuses nontender and face symmetric Face and sinus: normal facial exam, sinuses nontender and face symmetric Mouth: Yes Normal oral and palatal mucosa present, Yes lip normal, Yes tongue normal, Yes Normal salivary glands and ducts present, Yes oropharynx brett
[2023-06-02 18:05] VITALS: BP 144/84; PULSE 78; RESP 16; TEMP 36.3; O2SAT 100
== END 2023-06-02 18:37 | disposition home or self-care (01) ==
PROVIDERS: Emergency Provider Nurse Practitioner Family
DX: R11.0 Nausea (principal); H60.502 Unspecified acute noninfective otitis externa, left ear; G43.419 Hemiplegic migraine, intractable, without status migrainosus
CPT/HCPCS: 99213; G0463

== ENCOUNTER 2023-06-30 17:23 | Emergency (ER) | payer OTHER, SELFPAY ==
--- NOTE | 2023-06-30 17:24 | ED.URI ---
HPI - URI/Sore Throat General Chief Complaint: Upper Respiratory Infection Stated Complaint: Sinus Infection symtoms Time Seen by Provider: 06/30/23 17:24 Source: patient Mode of arrival: ambulatory Limitations: no limitations History of Present Illness HPI Narrative: Ness is a 23-year-old female patient presenting to clinic today with complaints of possible sinus infection. She reports she is having cervical lymph node swelling, sore throat, nasal congestion, and fever. States that symptoms started on Friday evening. No known exposure to anyone with COVID, flu, or strep. Did take an at-home COVID tested and was negative. MD elicited complaint: sore throat and nasal congestion Related Data Home Medications Medication Instructions Recorded Confirmed norethindrone 1.5 mg-ethinyl 1 tablet PO DAILY 06/02/23 06/02/23 estradiol 30 mcg(21)/iron 75 mg(7) tablet (June FE 1.5 (28)) Allergies Allergy/AdvReac Type Severity Reaction Status Date / Time No Known Allergies Allergy Verified 06/30/23 17:35 Review of Systems Review of Systems: Pertinent positives per HPI. Patient denies any rash, visual changes, dizziness, cough, shortness of breath, chest pain, palpitations, nausea, vomiting, diarrhea, constipation, abdominal pain, or any urinary issues. [facility] Past Medical History Medical History Anxiety Constipation Overweight Social History Social History Smoking status: Never smoker Substance use: never Gender identity (if verbalized by the patient): Female Comments At the time of my signature, I reviewed and agree with the nursing past medical, surgical, social, and family history. There is no relevant family history pertinent to the patient complaint. Exam Narrative: General: Well-developed, well nourished, in no apparent distress Head: Normocephalic, atraumatic Eyes: Pupils equally round and reactive to light bilaterally, EOM intact, sclera and conjunctive clear, no discharge, lids normal Ears: TMs intact and clear, ear canals clear, no drainage, grossly hearing normal. Nose: Nares patent, clear nasal discharge, no inflammation, no sinus tenderness. Mouth: Oral pharynx red with mild tonsillar enlargement, without lesions or masses, good dentition, MMM. Neck: Supple, trachea midline, enlargement of anterior cervical nodes and right pre auricle lymph node, no thyroid masses or goiter palpable. Cardio: Regular rate and rhythm, s1 and s2 normal, no murmur appreciated. Resp: Clear to auscultation bilaterally, no rhonchi, rales, wheezing or rubs Course Course Emergency Course: Portions of this record may have been created with voice recognition software. Level of Care: Express Care Visit Vital Signs Vital signs: Vital signs reviewed MDM - URI/Sore Throat MDM Narrative Medical decision making narrative: At the time of visit patient is resting comfortably on exam table. Strep screen, influenza, and mono was obtained. All testing was negative in the clinic today. I suspect patient has URI/pharyngitis. Supportive measures were discussed with the patient she voiced understanding discharge instructions and agrees to treatment plan. Differential Diagnosis Differential diagnosis: Likely upper respiratory infection, otitis media, sinusitis, viral infection, bronchitis, influenza, pharyngitis and other (COVID) Discharge Plan Discharge Clinical Impression: Viral infection, PND (post-nasal drip) Upper respiratory infection Qualifiers: URI type: unspecified URI Qualified Code(s): J06.9 - Acute upper respiratory infection, unspecified Pharyngitis Qualifiers: Pharyngitis/tonsillitis etiology: unspecified etiology Qualified Code(s): J02.9 - Acute pharyngitis, unspecified Patient Disposition: Home, Self-Care Condition: Stable Instructions: Antibiotic For
[2023-06-30 17:38] VITALS: BP 141/86; PULSE 88; RESP 16; TEMP 36.8; O2SAT 100
== END 2023-06-30 18:01 | disposition home or self-care (01) ==
PROVIDERS: Emergency Provider Nurse Practitioner Family
DX: B34.9 Viral infection, unspecified (principal); R09.82 Postnasal drip; J06.9 Acute upper respiratory infection, unspecified; J02.9 Acute pharyngitis, unspecified
CPT/HCPCS: 36416; 86308; 87081; 87804; 87880; 99213; G0463

== ENCOUNTER 2023-07-13 12:41 | Emergency (ER) | payer OTHER, SELFPAY ==
[2023-07-13 12:54] VITALS: BP 124/78; PULSE 65; RESP 16; TEMP 36.2; O2SAT 100
--- NOTE | 2023-07-13 13:27 | ED.GENADULT ---
HPI - General Adult General Chief complaint: Upper Respiratory Infection Stated complaint: Sore Throat Source: patient Mode of arrival: ambulatory Limitations: no limitations History of Present Illness HPI narrative: Patient presents for evaluation of sick symptoms. She was evaluated here on 06/30/2023 for similar symptoms. She had strep, mono, flu swabs which were all negative. She states her symptoms persist. Symptoms include sore throat, postnasal drainage, mild sinus congestion, bilateral ear fullness, fever and nausea. Her developed symptoms after her symptom onset but his symptoms have resolved. She has tried dayquil without considerable improvement in her symptoms thereafter. Related Data Home Medications Medication Instructions Recorded Confirmed norethindrone 1.5 mg-ethinyl 1 tablet PO DAILY 06/02/23 06/02/23 estradiol 30 mcg(21)/iron 75 mg(7) tablet (Junel FE 1.04/22 (28)) Allergies Allergy/AdvReac Type Severity Reaction Status Date / Time No Known Allergies Allergy Verified 06/30/23 17:35 Review of Systems Review of Systems: CONSTITUTIONAL: Reports fever. Denies chills, or sweats. EYES: Denies visual changes, redness, or discharge. ENT: Reports fullness in both ears, sinus congestion and sore throat CARDIOVASCULAR: Denies chest pain, palpitations, or edema. RESPIRATORY: Denies cough or dyspnea. GASTROINTESTINAL: Reports nausea. Denies abdominal pain, vomiting, or diarrhea. GENITOURINARY: Denies dysuria or hematuria. SKIN: Denies rash or itching. MUSCULOSKELETAL: Denies back pain, joint pain, or myalgia. NEUROLOGIC: Denies headache, numbness, dizziness, or weakness. PSYCHIATRIC: Denies anxiety or depression. [facility] Past Medical History Medical History (Updated 07/13/23 @ 13:55 by CALLIE Viveros, TORSTEN) Anxiety Constipation Overweight Surgical History Surgical History History of laparotomy Family History Family History Mother Medical history non-contributory Social History Social History Smoking status: Never smoker Substance use: never Living arrangements: with family Occupation/Education: student Gender identity (if verbalized by the patient): Female Sexual Orientation (if Verbalized by the Patient): Straight or Heterosexual Spiritual care concerns: No Exam Narrative: GENERAL: Well-appearing, well-nourished, and in no acute distress. HEAD: Normocephalic, atraumatic. EYES: PERRLA and EOMI. ENT: Nares clear, no rhinorrhea or epistaxis. Mucous membranes moist. Bilateral tonsillar enlargement and erythema without exudate. Uvula is midline.. Bilateral TMs pearly guillermo nonbulging NECK: Supple. No adenopathy or masses. No carotid bruits or JVD CHEST: Clear to auscultation. No respiratory distress. No wheezes rales or rhonchi HEART: Regular rate and rhythm. No murmur heard. Normal peripheral pulses. ABDOMEN: Soft, nontender, nondistended, normal active bowel sounds. EXTREMITIES: Normal range of motion. No edema. SKIN: Warm, dry, no rash. NEURO: No focal deficits. Alert and oriented x3. PSYCH: Normal mood and affect. Course Course Emergency Course: This is a 23-year-old female who presented for evaluation of sick symptoms. Symptoms have been present for several weeks and refractory to [id number]-expicim agents. Will treat with Augmentin for pharyngitis. Increase hydration. Follow up with primary provider. Go to the ER for worsening symptoms. Pt in agreement with plan of care. Level of Care: Express Care Visit Vital Signs Vital signs: Vital Signs Temperature 36.2 C L 07/13/23 12:54 Pulse Rate 65 07/13/23 12:54 Respiratory Rate 16 07/13/23 12:54 Blood Pressure 124/78 07/13/23 12:54 Pulse Oximetry 100 07/13/23 12:54 Temperatu
== END 2023-07-13 13:29 | disposition home or self-care (01) ==
PROVIDERS: Emergency Provider Nurse Practitioner; PCP Family Medicine
DX: J02.9 Acute pharyngitis, unspecified (principal)
CPT/HCPCS: 87081; 87880; 99213; G0463

== ENCOUNTER 2023-11-27 06:59 | Emergency (ER) | payer OTHER, SELFPAY ==
[2023-11-27 07:03] VITALS: BP 150/77; PULSE 89; RESP 20; TEMP 36.8; O2SAT 99
[2023-11-27] MEDS: BELLADONNA ALK/PHENOB ELIX 10 ML, MAG HYDROX/ALUMINUM HYD/SIMETH 30 ML, LIDOCAINE HCL 2... PO (07:52)
[2023-11-27 08:54] VITALS: BP 126/80; PULSE 85; RESP 16; TEMP 37.1; O2SAT 99
--- NOTE | 2023-11-27 09:27 | ED.GENADULT ---
HPI - General Adult General Chief complaint: Shortness of Breath/Dyspnea Stated complaint: shortness of breath Time Seen by Provider: 11/27/23 07:26 History of Present Illness HPI narrative: patient is a 23-year-old female who presents ER with sore throat. Ongoing for 2 days. When she woke today it felt like there was some glass burning her throat as well. She has some sinus congestion with postnasal drip. Mild cough. No fevers or chills or sweats. No known sick contacts. She has a little bit of discomfort when she lays down flat and some symptoms similar to acid reflux. She has tried no medications. Related Data Home Medications Medication Instructions Recorded Confirmed norethindrone 1.5 mg-ethinyl 1 tablet PO DAILY 06/02/23 09/23/23 estradiol 30 mcg(21)/iron 75 mg(7) tablet ( FE .04/22 (28)) Allergies Allergy/AdvReac Type Severity Reaction Status Date / Time steroids AdvReac Intermediate Anxiety Uncoded 11/27/23 07:52 Review of Systems Constitutional: Constitutional: Denies chills, Reports fatigue and Denies fever(s) ENT: Reports nasal congestion and Reports sore throat Cardiovascular: Cardiovascular: Denies chest pain, Denies rapid heart rate and Denies radiating jaw, neck or arm pain Respiratory: Respiratory: Reports cough, Denies dyspnea and Denies wheezing PMFSH Past Medical History Medical History (Updated 11/27/23 @ 09:28 by Fredi Morse MD) Anxiety Constipation Overweight Surgical History Surgical History (Updated 09/23/23 @ 11:36 by Kimberly Roberson MD) H/O gynecological procedure 2020 ~ cystoscopy H/O laparoscopy Family History Family History (Updated 09/23/23 @ 09:29 by Lauren Valadez MA) Mother Medical history non-contributory Grandparent Breast cancer paternal grandmother Other Depression Social History Social History (Updated 09/23/23 @ 09:30 by Lauren Valadez MA) Smoking status: Never smoker Alcohol intake: never Substance use: never Lack of Transportation: No Lack of Food: Never True Current Housing: I Have Housing Concerned About Future Housing: No Difficulty Paying Gas/Electric Bills: No Difficulty Paying for Meds: No Currently Unemployed: No Education: Trade/Vocational Certificate Difficulty w/ Childcare or Family Care: No Living arrangements: with family Occupation/Education: occupation Additional occupation/education comments: [employer] Gender identity (if verbalized by the patient): Female Sexual Orientation (if Verbalized by the Patient): Straight or Heterosexual Spiritual care concerns: No Exam Narrative: GENERAL: Well-appearing, well-nourished, and in no acute distress. HEAD: Normocephalic, atraumatic. ENT: Mucous membranes moist. Normal-appearing posterior oropharynx without tonsillar hypertrophy. Uvula midline and nonedematous. NECK: Supple. CHEST: Clear to auscultation. No respiratory distress. HEART: Regular rate and rhythm. Normal peripheral pulses. EXTREMITIES: Normal range of motion. No edema. SKIN: Warm, dry, no rash. NEURO: Alert and oriented x3. Course Course Emergency Course: Patient resting comfortably. Informed of results. Mild improvement with GI cocktail. Discharge home. Vital Signs Vital signs: Vital Signs Temperature 98.2 F 11/27/23 07:03 Pulse Rate 89 11/27/23 07:03 Respiratory Rate 20 11/27/23 07:03 Blood Pressure 150/77 H 11/27/23 07:03 Pulse Oximetry 99 11/27/23 07:03 Oxygen Delivery Room Air 11/27/23 07:03 Temperature 98.8 F 11/27/23 08:54 Pulse Rate 85 11/27/23 08:54 Respiratory Rate 16 11/27/23 08:54 Blood Pressure 126/80 11/27/23 08:54 Pulse Oximetry 99 11/27/23 08:54 Oxygen Delivery Room Air 11/27/23 07:03 Medical Decision Making Vital Signs Vital Signs: Vital Signs Temperature 98.2 F 11/27/23 07:03 Pulse Rate 89 11/27/23 07:03 Respiratory Rate 20 11/27/23
== END 2023-11-27 09:48 | disposition home or self-care (01) ==
PROVIDERS: Emergency Provider Emergency Medicine
DX: J06.9 Acute upper respiratory infection, unspecified (principal); K21.9 Gastro-esophageal reflux disease without esophagitis; E66.3 Overweight; Z68.31 Body mass index [BMI] 31.0-31.9, adult
CPT/HCPCS: 99283; A9270

== ENCOUNTER 2023-12-19 08:35 | Outpatient (CLI) | payer OTHER, SELFPAY ==
--- NOTE | ~2023-12-19 | XR_ITS ---
EXAMINATION: XR UGIAC wo kub DATE: 12/19/2023 09:12 INDICATION: Gastroesophageal reflux disease without esophagitis TECHNIQUE: The patient drank thick barium, gas-producing crystals, and thin barium. A total of 514 fl uoroscopic images of the esophagus, stomach, and proximal small bowel were obtained. Fluoroscopy expo sure time was 1.8 minutes. COMPARISON: None. FINDINGS: The esophagus is normal without mass or stricture. Esophageal motility is normal. There is no hiatal hernia. There was repetitive gastroesophageal reflux of a small amount of contrast into the distal esophagus with provocative maneuvers. The stomach and proximal small bowel are normal. IMPRESSION: 1. Recurrent gastroesophageal reflux with small amount of contrast into the distal esophagus with pro vocative maneuvers. Otherwise normal upper GI study. Reviewed, dictated and finalized at location A. S SCIENCE ENGINEER IMPRESSION: 1. Recurrent gastroesophageal reflux with small amount of contrast into the dis tatiana esophagus with provocative maneuvers. Otherwise normal upper GI study.
== END 2023-12-19 08:36 | disposition home or self-care (01) ==
PROVIDERS: PCP Emergency Medicine; Visit Provider Emergency Medicine
DX: K21.9 Gastro-esophageal reflux disease without esophagitis (principal)
CPT/HCPCS: 74246

== ENCOUNTER 2024-01-09 20:53 | Emergency (ER) | payer OTHER, SELFPAY ==
--- NOTE | ~2024-01-09 | CT_ITS ---
EXAMINATION: CT abdomen pelvis w con DATE: 01/10/2024 04:03 INDICATION: Lower abdominal pain. TECHNIQUE: Computed tomography (CT) of the abdomen and pelvis was performed with 100 mL Omnipaque-350 intravenous contrast. Automated exposure control and iterative reconstruction technique were employe d. The dose-length product was 617.54 mGy-cm. COMPARISON: None FINDINGS: Lung bases are clear. Heart size is normal. No pericardial or pleural effusion. Liver, gallbladder sp julia, pancreas, bilateral adrenal glands and kidneys are normal. Bowels including the appendix are no rmal. 3.0 cm left adnexal cyst. Bladder, uterus and right adnexa are unremarkable. No free intraperit julio gas or fluid. No pathologically enlarged abdominal or pelvic lymphadenopathy. Mild thoracic spo ndylosis. Bone island at the left femoral neck. IMPRESSION: 1. No acute intra-abdominal/pelvic process. Reviewed, dictated and finalized at location A. PING DIE [employer]KER
[2024-01-09 21:10] VITALS: BP 138/87; PULSE 80; RESP 18; TEMP 36.2; O2SAT 100
[2024-01-10] VITALS (7 sets, daily range): BP systolic 122–145; BP diastolic 67–93; PULSE 67–87; RESP 14–20; TEMP 36.6–36.8; O2SAT 100
[2024-01-10 03:04] LABS: Basophils Absolute Auto 0.1 K/mm3 (0.0-0.1); Basophils Percent Auto 0.5 % (0.2-1.2); Eosinophils Absolute Auto 0.1 K/mm3 (0-0.3); Eosinophils Percent Auto 0.9 % (0-4.4); Hematocrit 39.3 % (37.0-47.0); Hemoglobin 12.7 g/dL (12.0-15.0); Immature Granulocyte Absolute 0.01 K/mm3 (0.00-0.031); Immature Granulocyte Percent A 0.1 % (0-0.5); Lymphocytes Absolute Auto 5.81 K/mm3 (0.9-3.2); Lymphocytes Percent Auto 59.8 % (18.3-44.2); Mean Corpuscular HGB Conc 32.3 g/dl (32-36); Mean Corpuscular Hemoglobin 28.6 pg (26-34); Mean Corpuscular Volume 88.5 fl (80-100); Mean Platelet Volume 9.8 fl (7.4-10.4); Monocytes Absolute Auto 0.6 K/mm3 (0.1-0.6); Monocytes Percent Auto 5.8 % (2.6-8.5); Neutrophils Absolute Auto 3.2 K/mm3 (1.3-6.7); Neutrophils Percent Auto 32.9 % (45.5-73.1); Platelet Count Result 294 k/mm3 (150-375); Red Blood Count 4.44 M/mm3 (4.2-5.4); Red Cell Distribution Width 11.9 % (11.5-14.5); White Blood Count 9.7 K/mm3 (4.5-10.0)
[2024-01-10 03:20] LABS: Alanine Aminotransferase 18 U/L (6-35); Albumin Level 4.4 g/dL (3.5-5.1); Alkaline Phosphatase 60 U/L (38-126); Anion Gap 6 mmol/L (8-16); Aspartate Amino Transferase 22 U/L (14-36); Bilirubin,Total 0.4 mg/dL (0.2-1.3); Blood Urea Nitrogen 7 mg/dL (7-17); Calcium 9.4 mg/dL (8.4-10.2); Carbon Dioxide 26 mmol/L (22-30); Chloride 105 mmol/L (98-107); Estimated CRCL calculation 143 ml/min; Estimated Glomerular Filt Rate > 60; Glucose 96 mg/dL (65-110); Lipase 123 U/L (23-300); Potassium 3.8 mmol/L (3.4-5.0); Sodium 137 mmol/L (137-145)
--- NOTE | 2024-01-10 03:35 | ED.GENADULT ---
HPI - General Adult General Chief complaint: GI Bleed Stated complaint: blood in stool Time Seen by Provider: 01/10/24 01:57 History of Present Illness HPI narrative: This is a 23-year-old female presenting ED with chief complaint of blood in her stool. Patient and constipated last week. She says she is pellet like stools mixed with mucus and blood. She also has crampy lower abdominal pain. Says she has adhesions in the past requiring adhesiolysis. Patient has been taking MiraLax for constipation. No other complaints. Related Data Home Medications Medication Instructions Recorded Confirmed norethindrone 1.5 mg-ethinyl 1 tablet PO DAILY 06/02/23 09/23/23 estradiol 30 mcg(21)/iron 75 mg(7) tablet ( FE .04/22 (28)) Allergies Allergy/AdvReac Type Severity Reaction Status Date / Time steroids AdvReac Intermediate Anxiety Uncoded 11/27/23 07:52 PMFSH Past Medical History Medical History Anxiety Constipation Overweight Surgical History Surgical History H/O gynecological procedure 2020 ~ cystoscopy H/O laparoscopy Family History Family History Mother Medical history non-contributory Grandparent Breast cancer paternal grandmother Other Depression Social History Social History Smoking status: Never smoker Alcohol intake: never Substance use: never Lack of Transportation: No Lack of Food: Never True Current Housing: I Have Housing Concerned About Future Housing: No Difficulty Paying Gas/Electric Bills: No Difficulty Paying for Meds: No Currently Unemployed: No Education: Trade/Vocational Certificate Difficulty w/ Childcare or Family Care: No Living arrangements: with family 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 Head: atraumatic. EYES: EOMI, NOSE: Atraumatic NECK: Trachea midline RESPIRATORY: No increased rate of breathing CARDIOVASCULAR: RRR, ABDOMINAL: Mild tenderness in the lower quadrants, left worse than right no guarding rebound MUSCULOSKELETAl: No obvious deformities NEURO: Alert. Moving 4/4 extremities SKIN:: Warm, dry. Normal color PSYCHIATRIC: Normal affect Course Vital Signs Vital signs: Vital Signs Temperature 97.1 F L 01/09/24 21:10 Pulse Rate 80 01/09/24 21:10 Respiratory Rate 18 01/09/24 21:10 Blood Pressure 138/87 01/09/24 21:10 Pulse Oximetry 100 01/09/24 21:10 Oxygen Delivery Room Air 01/09/24 21:10 Temperature 98.2 F 01/10/24 01:18 Pulse Rate 67 01/10/24 04:33 Respiratory Rate 20 01/10/24 04:33 Blood Pressure 134/93 H 01/10/24 04:33 Pulse Oximetry 100 01/10/24 04:33 Oxygen Delivery Room Air 01/09/24 21:10 Medical Decision Making MDM Narrative Medical decision making narrative: -Course: 23-year-old female presenting lower pain. Laboratory studies negative. Patient did develop some anxiety and a dry mouth after she received the IV contrast. No hives nausea vomiting wheezing or other signs of allergic reaction. she was not treated for allergic reaction and all symptoms resolved within 10 minutes. Patient then left AMA before CT abdomen pelvis had resulted as she had to go to work. -DDX includes but is not limited to: constipation, UTI appendicitis, diverticulitis small-bowel obstruction -Co-morbidities complicating care: constipation history occasions adhesiolysis, PCOS -Independent interpretation of studies: laboratory studies within normal limits. -Shared decision making / Dispo
--- NOTE | 2024-01-10 04:05 | PC.NURSE ---
Pt came back from CT with c/o itching roof of mouth and lips, anxious and c/o SOB. ERP notified. Meds overrided. Dr Lozada in room, states to hold on meds for now. Pt seems to be improving.
--- NOTE | 2024-01-10 05:17 | PC.NURSE ---
Pt continues to state that she is feeling back to normal.
== END 2024-01-10 06:08 | disposition left against medical advice (07) ==
PROVIDERS: Emergency Provider Emergency Medicine; PCP Emergency Medicine
DX: K59.00 Constipation, unspecified (principal); E66.3 Overweight; Z68.31 Body mass index [BMI] 31.0-31.9, adult
CPT/HCPCS: 36415; 74177; 80053; 81025; 83690; 85025; 99284; J1200; J2930; Q9967

== ENCOUNTER 2024-05-21 09:48 | Outpatient (CLI) | payer OTHER, SELFPAY ==
--- NOTE | ~2024-05-21 | US_ITS ---
EXAMINATION: US venous doppler [facility] DATE: 05/21/2024 10:43 INDICATION: Left lower limb pain and palpable lump TECHNIQUE: Grayscale ultrasound images without and with compression and Doppler ultrasound images of the left lower extremity veins were obtained. COMPARISON: None. FINDINGS: The visualized portions of left common femoral vein, profunda (deep) femoral vein, femoral veins, pop liteal vein, peroneal veins, posterior tibial veins, gastrocnemius vein and greater saphenous vein ou tflow are patent. Normal appearance to the subcutaneous fat and underlying musculature at the region of concern with no abnormal masses or fluid collections. IMPRESSION: 1. No deep venous thrombosis in the left lower limb. Reviewed, dictated and finalized at location B.
== END 2024-05-21 09:49 | disposition home or self-care (01) ==
PROVIDERS: PCP Emergency Medicine; Visit Provider Emergency Medicine
DX: M79.662 Pain in left lower leg (principal)
CPT/HCPCS: 93971

== ENCOUNTER 2024-12-09 09:29 | Outpatient (CLI) | payer OTHER, SELFPAY ==
--- NOTE | ~2024-12-09 | US_ITS ---
EXAMINATION TYPE: US breast BI limited COMPARISON: NONE REASON FOR STUDY: N64.4 - Mastodynia TECHNIQUE: Targeted sonographic evaluation of the bilateral breasts was performed. INTERPRETATION: Sonographic imaging of the right breast from the 9:00 through 3:00 regions and the right subareolar r egion was performed. Sonographic imaging of the left breast from the 9:00 to 12:00 positions was perf ormed. No solid or cystic lesion identified in the region scanned. No sonographic abnormality seen in the re gion scanned. IMPRESSION: Negative BI-RADS CATEGORY: BI-RADS 1: Normal Reviewed, dictated and finalized at location . [employer]
--- OUTSIDE RECORDS SUMMARY | 2024-12-16 02:09 | XMS_ITS | Continuity of Care Document ---
Author Organization [facility] Address [address] [place], [place] Phone Care Team Providers Care County Supervisor Name Role Phone Varun Tang MD Unavailable Unavailable Allergies, Adverse Reactions, Alerts Substance Reaction Status Criticality No Known Allergies Active No Inform ation Medications Medication Instructions Dosage Effective Dates (start - stop) Status Comments ondansetron [address] 1 tablet by translingual route every 4-6hours on top of the tongue where it will dissolve, then swallow as needed - Active PRN for nausea Procedures Procedure Date OFFICE/OUTPATIENT VISIT, EST OFFICE/OUTPATIENT VISIT, EST OFFICE/OUTPATIENT VISIT, EST OFFICE/OUTPATIENT VISIT, EST OFFICE/OUTPATIENT VISIT, EST OFFICE/OUTPATIENT VISIT, EST PREV VISIT, NEW, AGE 18-39 OFFICE/OUTPATIENT VISIT, NEW Advance Directives Directive Yes / No Effective Date File Name No Information Encounters Encounter Description Practice Location Reason(s) For Visit Diagnoses Date Provider Providers Copied on Encounter OFFICE/OUTPA TIENT VISIT, EST [facility], [address], [place], [id number], [place] tel:[phone] [facility] GI1 (chief complaint) Gastroenteritis [address], [place], [place], [address] , [place]. tel:[phone] OFFICE/OUTPA TIENT VISIT, EST [facility], [address], [place], [place], [id number], [place] tel:[phone] [facility] calf pain1 (chief complaint) neuropathy 1 (chief complaint) ear pain1 (chief complaint) Pain in left lower legOtalgia, left earIdiopathic neuropathy [address], [place], [place], [address] , [place]. tel:[phone] OFFICE/OUTPA TIENT VISIT, [facility], [address], [place], [place], [address], [place] tel:[phone] [facility] GERD1 (chief complaint) IBS-C (chief complaint) PCOS1 (chief complaint) GERD w/o esophagitisIrritabl e bowel syndrome with constipationPolycys tic ovarian syndromeAllergy to other foods [address], [place], [place], [address] , [place]. tel:[phone] OFFICE/OUTPA TIENT VISIT, [facility], [address], [place], [place], [id number], [place] tel:[phone] [facility] constipati on1 (chief complaint) HTN (chief complaint) PCOS1 (chief complaint) Irritable bowel syndrome with constipationGERD w/o esophagitisOccult blood in stoolPolycystic ovarian syndromeEssential (primary) hypertension [address], [place], [place], [address] , [place]. tel:[phone] OFFICE/OUTPA TIENT VISIT, [facility], [address], [place], [place], [id number], [place] tel:[phone] [facility] GERD1 (chief complaint) blood1 (chief complaint) HTN (chief complaint) GERD w/o esophagitisOccult blood in stoolDrug induced constipationEssenti al (primary) hypertension [address], [place], [place], [id number] , [place]. tel:[phone] OFFICE/OUTPA TIENT VISIT, [facility], [address], [place], [place], [id number], [place] tel:[phone] [facility] GERD1 (chief complaint) sick1 (chief complaint) GERD w/o esophagitisAcute bronchitisAnt chest-wall pain [address], [place], [place], [address] , [place]. tel:[phone] PREV VISIT, NEW, AGE 18-39 [facility], [address], [place], [place], [address], [place] tel:[phone] [facility] physical (chief complaint) Encounter for general adult medical exam w abnormal findingsChronic sinusitisLymphadeno pathyPolycystic ovarian syndrome [address], [place], [place], [address] , [place]. tel:[phone] Family History Family Member Type Diagnosis Age At Onset Brother Problem Alive and well Father Problem unknown Mother Problem unknown Payers Payer name Insurance type Covered republican ID Authoriza tion(s) No Information Social History Type Description Quantity Date Captured Comments Alcohol Use Details No Caffeine Use Details Unknown Tobacco Use Status Current non-smoker Smoking Status Never smoker Sex Female Vital Signs Date / Time: Height Weight BMI Pulse Rate Blood Pressure Temperature Respiratory Rate Body Surface Area Head Circumference BMI percentile Pulse Ox Inhaled Ox 10:03 PM 66.00 in 202.00 lbs 32.6 0 kg/m eter (2) 98.4 F Chief Complaint And Reason For Visit From encounter dated '10/11/2024 11:04'. GI1 (chief complaint). Description: Pt went to [place] yesterday and had usha pate for lunchand she stared to have acute projectile vomiting with diarrhea 3-4 hours after eating lunch. Pt hasbeen puking up syed for a while .Pt took some OTC nausea meds today and vomiting stopped but she feels very nauseated with any food or water Pt c/o stomach cramp. Pt had watery diarrhea as well Pt has some abdominal cramp Pt states that vomiting and diarrhea stopped last night but she feels nauseaand stomach cramp and urge to have BM but no diarrhea. pt feels that she had low grade temp. She denies any sick contact or blood in stool Plan Of Treatment Date Type Action Status Referral Ordered: US VENOUS DOPPLER ordered Referral Ordered: UPPER GI W/ KUB ordered Referral Ordered: Otolaryngology (related to Chronic sinusitis) ordered Referral Ordered: Referrals: Otolaryngology. Evaluate and treat ordered History Of Present Illness Encounter Date Complaint History Of Prese nt Illness GI1 Pt went to [place] yesterday and had usha ramirezger for lunch and she stared to have acute projectile vomiting with diarrhea 3-4 hours after eating lunch. Pt has been puking up syed for a while .Pt took some OTC nausea meds today and vomiting stopped but she feels very nauseated with any food or water Pt c/o stomach cramp. Pt had watery diarrhea as well Pt has some abdominal cramp Pt states that vomiting and diarrhea stopped last night but she feels nausea and stomach cramp and urge to have BM but no diarrhea. pt feels that she had low grade temp. 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 Pt also notices slightly red color both lower leg after shower recently Pt denies any claudication. calf pain1 Pt notices an ac deering soft slightly tender nodule left calf area since 4 days ago Pt has not had any pain since two days ago Pt denies any bruising, edema Pt notices slightly redness and warmth around the left calf area 4 days ago and she notices the above symptoms resolved 2 days ago pt denies any recent travel or bedrest Pt denies any chest pain or sob PCOS1 Pt has PCOS with negative pelvic ultrasound. Her T level is ok IBS-C Pt has constipat ion pt takes MiraLax daily and she has been having normal BM. Pt has very mild food allergy without celiac disease. Pt denies any abd pain Pt has mild bloating. Pt cut down wheat and egg white and casein and she feels better. GERD1 Pt states that s he changed her diet and her GERD resolved and she no longer needs to take pepcid PCOS1 pt has PCOS. 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 Pt no longer has any constipation and she denies any blood in stool anymore. Her GERD is doing well with pepcid 20 mg daily. Pt denies any diarrhea Pt states that she thinks that she has some gluten allergy which caused her occasional bloating and pain and constipation. Pt does have GERD Pt states that she stopped gluten and her bloating and abd pain and constipation all resolved. Pt thinks that she may have some food allergy. Pt states that her GERD is well controlled with pepcid 20 mg. HTN Pt has mild HTN today. Pt denies any chest pain or headache blood1 Pt c/o feeling c onstipated during last two weeks with lower abdominal cramp. Pt denies any nausea, vomiting Pt notices straining with BM and her stool is NOT hard but broke down in pieces with tinge or bright red blood with BM. Pt went to ER and she had negative abdominal and pelvis CT and lab work. Pt was given some colace but she has not started it. Pt also has been taking MiraLax for the past two weeks Pt states that her abd pain resolved. GERD1 Pt has chronic G ERD, which is confirmed with upper GI study. Pt has been taking pepcid 40 mg daily and her GERD symptoms are well controlled. sick1 pt c/o acute ons et of midsternal chest pain, sore throat, productive white phlegm cough, head congestion, sinus congestion, ear pain since 4 days ago Pt denies any sob Pt denies any fever .Pt denies any dysphagia. Pt states that coughing makes the midsternal chest pain worse.. Pt denies any exertional chest pain. Pt states that chest pain is almost resolved now . GERD1 Pt has chronic G ERD since age of 18. pt states that she always feels something come back to her throat area after eating Pt denies any dysphagia Pt denies any abd pain Pt feels full easily .Pt denies any constipation or diarrhea. Pt denies any blood in stool Pt has been on pepcid since 4 days ago which has been helping physical Pt needs annual physical Pt has persistent swollen and tender lymph node on left side of neck since February after she contracted COVID. Pt also states that she also has right neck lymph node that comes and goes since June along with some intermittent sore throat, bilateral ear pain and tinnitus, myalgia, and also sinus congestion and drainage .Pt denies any cough or sob Pt denies any fever. Pt states that she has been sick multiple times since June. Pt went to urgent care recently and she had negative mono and rapid strep swab and influenza as well. She was given amoxicillin second week of july by urgent care which made her feel better so she stopped taking it after only 5 days. Pt has been having ear pain and sore throat currently along with swollen neck lymph node for one week. Pt denies any sick contact. Pt denies any headache Pt has PCOS and she sees PHOTOCOPYING EQUIPMENT REPAIRER and she is on OCP. Pt has chronic sinus congestion. Instructions Date Instruction Additional Infor amber No Information Assessments Type Assessment Date assessment Gastroenteritis Mental Status Date Cognitive Assessment Orientation - [place] ed to time, place, person, situation.
== END 2024-12-09 09:30 | disposition home or self-care (01) ==
LOC: ANHIMG 09:33
PROVIDERS: PCP Emergency Medicine; Visit Provider Student in an Organized Health Care Education/Training Program
DX: N64.4 Mastodynia (principal)
CPT/HCPCS: 76642

== ENCOUNTER 2025-01-04 11:41 | Emergency (ER) | payer OTHER, SELFPAY ==
--- NOTE | 2025-01-04 11:49 | ED.URI ---
HPI - URI/Sore Throat General Chief Complaint: Upper Respiratory Infection Stated Complaint: Flu Symptoms Source: patient and RN notes reviewed Mode of arrival: ambulatory Limitations: no limitations History of Present Illness HPI Narrative: Patient is a 24-year-old female who presents to the [facility] with complaints of fever for the past 4 days. patient also endorses generalized body aches, headache, and cough. States that she has had a frequent productive cough with green sputum. Patient also endorses nausea and vomiting. Denies abdominal pain. States that she has been unable to keep down ibuprofen and Tylenol due to the nausea and vomiting. She states that she has been attempting to take ibuprofen and Tylenol for fever. She denies chest pain or shortness of breath. Related Data Allergies Allergy/AdvReac Type Severity Reaction Status Date / Time steroids AdvReac Intermediate Anxiety Uncoded 12/20/24 13:19 Review of Systems Review of Systems: CONSTITUTIONAL: Reports fever and chills. EYES: Denies visual changes, redness, or discharge. ENT: Reports otalgia but denies sore throat CARDIOVASCULAR: Denies chest pain, palpitations, or edema. RESPIRATORY: Reports cough but denies dyspnea. GASTROINTESTINAL: Denies abdominal pain or diarrhea. Reports nausea and vomiting. GENITOURINARY: Denies dysuria or hematuria. SKIN: Denies rash or itching. MUSCULOSKELETAL: Denies back pain, joint pain, but reports myalgia. NEUROLOGIC: Reports headache but denies numbness or weakness. Pertinent positives per HPI. [facility] Past Medical History Medical History Mastalgia Overweight Anxiety Constipation Surgical History Surgical History H/O laparoscopy H/O gynecological procedure 2020 ~ cystoscopy Family History Family History Mother Medical history non-contributory Grandparent Breast cancer paternal grandmother Other Depression Social History Social History Smoking status: Never smoker Alcohol intake: never Substance use: never Do You Feel Safe in your Home?: Yes Lack of Transportation: No Lack of Food: Never True Current Housing: I Have Housing Concerned About Future Housing: No Difficulty Paying Gas/Electric Bills: No Difficulty Paying for Meds: No Currently Unemployed: No Education: Trade/Vocational Certificate Difficulty w/ Childcare or Family Care: No Living arrangements: with family Additional living arrangements comments: Occupation/Education: occupation Additional occupation/education comments: [employer] Gender identity (if verbalized by the patient): Female Sexual Orientation (if Verbalized by the Patient): Straight or Heterosexual Spiritual care concerns: No Comments At the time of my signature, I reviewed and agree with the nursing past medical, surgical, social, and family history. There is no relevant family history pertinent to the patient complaint. Exam Narrative: GENERAL: This is a well-nourished, well-developed patient, in no apparent distress. HEAD: normocephalic, atraumatic. EYES: Sclera clear/white. Vision is grossly intact. EARS: External ears normal. Left TM erythematous and bulging. Right TM normal. Hearing grossly intact. NOSE: External nose normal with no obvious nasal discharge, nares without redness, no rhinorrhea. THROAT: Mucous membranes moist, posterior pharynx clear. NECK: Neck supple, non-tender without lymphadenopathy, masses or thyromegaly. CARDIOVASCULAR: Regular rate and rhythm without murmurs, gallops, or rubs. RESPIRATORY: Clear to auscultation. Breath sounds equal bilaterally. No wheezes, rales, or rhonchi. GASTROINTESTINAL: Abdomen soft, non-tender, nondistended. Bowel sounds are active. No hepato-splenomegaly, or palpable masses. No guarding. SKIN: warm, intact with no suspicious lesions or rash, good texture and turgor. NEURO: awake, alert, and oriented to person, place and time. There were no obvious focal neurologic abnormalities. Course Course Level of Care: Express Care Visit Vital Signs Vital signs: Vital Signs Temperature 101 F H 01/04/25 11:54 Pulse Rate 130 H 01/04/25 11:54 Respiratory Rate 16 01/04/25 11:54 Blood Pressure 132/82 01/04/25 11:54 Pulse Oximetry 98 01/04/25 11:54 Temperature 101 F H 01/04/25 11:54 Pulse Rate 130 H 01/04/25 11:54 Respiratory Rate 16 01/04/25 11:54 Blood Pressure 132/82 01/04/25 11:54 Pulse Oximetry 98 01/04/25 11:54 Reviewed MDM - URI/Sore Throat MDM Narrative Medical decision making narrative: Viral illness may last between 7-21 days; antibiotics do not cure viral illness and are NOT recommended at this time. Also, recommend symptomatic treatment includes: rest, fluids, and increase humidity of the air at home. Recommend Acetaminophen as directed on the bottle to reduce fever, pain, headache. Please schedule a follow-up visit with your personal physician for further evaluation and treatment within 3-5days. If your symptoms persist, change or worsen significantly before you can contact your personal physician then please, without delay, go to the emergency department for further evaluation. Take antibiotics as directed. May given ibuprofen and/or Tylenol as needed for pain and/or fever. Follow up with primary care provider in 7-10 days to have ear rechecked. Differential Diagnosis Differential diagnosis: Likely upper respiratory infection, otitis media, viral infection, influenza and other (covid) Lab Data Attestation: I reviewed the patient's lab results. Critical Care Time Critical Care Time Critical Care Time: No Discharge Plan Discharge Clinical Impression: Influenza A, Acute left otitis media Patient Disposition: Home, Self-Care Condition: Stable Instructions: Influenza (ED), Ear Infection (ED) Additional Instructions: Viral illness may last between 7-21 days; antibiotics do not cure viral illness and are NOT recommended at this time. Also, recommend symptomatic treatment includes: rest, fluids, and increase humidity of the air at home. Recommend Acetaminophen as directed on the bottle to reduce fever, pain, headache. Please schedule a follow-up visit with your personal physician for further evaluation and treatment within 3-5days. If your symptoms persist, change or worsen significantly before you can contact your personal physician then please, without delay, go to the emergency department for further evaluation. Take antibiotics as directed. May given ibuprofen and/or Tylenol as needed for pain and/or fever. Follow up with primary care provider in 7-10 days to have ear rechecked. 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
[2025-01-04 11:54] VITALS: BP 132/82; PULSE 130; RESP 16; TEMP 38.3; O2SAT 98
[2025-01-04] MEDS: ONDANSETRON HCL ODT 4 MG TABLET PO (11:59)
[2025-01-04 12:13] LABS: EDINFLUASCREEN Positive (Negative); EDINFLUBSCREEN Negative (Negative)
[2025-01-04 12:13] LABS: EDCOVIDSCREEN Negative (Negative)
== END 2025-01-04 12:11 | disposition home or self-care (01) ==
PROVIDERS: Emergency Provider Nurse Practitioner
DX: J10.1 Influenza due to other identified influenza virus with other respiratory manifestations (principal); H66.92 Otitis media, unspecified, left ear; Z20.822 Contact with and (suspected) exposure to COVID-19
CPT/HCPCS: 87426; 87804; 99213; A9270; G0463

== ENCOUNTER 2025-07-14 09:33 | Outpatient (CLI) | payer OTHER, SELFPAY ==
--- NOTE | ~2025-07-14 | US_ITS ---
US abdomen limited INDICATION: Upper abdominal pain PROCEDURE: Realtime right upper abdominal ultrasound. COMPARISON: No prior studies for comparison. FINDINGS: The pancreas is normal without focal mass or pancreatic ductal dilation. Liver echotexture is normal without focal mass or intrahepatic biliary dilatation. There is normal directional flow in the portal vein. The gallbladder is normal without stones, gallbladder wall thickening or pericholecystic fluid. Common bile duct measures 4 mm. No sonographic English's sign. IMPRESSION: 1: Normal limited abdominal ultrasound. Reviewed, dictated and finalized at location O.
== END 2025-07-14 09:34 | disposition home or self-care (01) ==
LOC: MICIMG 09:34
PROVIDERS: PCP Emergency Medicine; Visit Provider Emergency Medicine
DX: R10.10 Upper abdominal pain, unspecified (principal)
CPT/HCPCS: 76705

== ENCOUNTER 2025-10-31 10:46 | Outpatient (CLI) | payer OTHER, SELFPAY ==
[2025-10-31 11:48] LABS: Beta HCG Quantitative 26.42 mIU/ML
== END 2025-10-31 10:47 | disposition home or self-care (01) ==
LOC: ANHLAB 10:48
PROVIDERS: PCP Emergency Medicine; Visit Provider Obstetrics & Gynecology
DX: N92.6 Irregular menstruation, unspecified (principal)
CPT/HCPCS: 36415; 84702

== ENCOUNTER 2025-11-01 09:57 | Emergency (ER) | payer OTHER, SELFPAY ==
--- NOTE | ~2025-11-01 | US_ITS ---
EXAM/PROCEDURE: US OB <=14 wk fetus w TV HISTORY: 5 weeks, bleeding, cramping LLQ COMPARISON: 08/26/2025 TECHNIQUE: Evaluation of bleeding and viability LMP: September 29, 2025 EGA by LMP 4 weeks 5 days FINDINGS: No intrauterine gestation identified. Uterus measures 7.4 x 3.4 x 4.3 centers Endometrial stripe: 1.3 cm and mildly heterogeneous in appearance. Nabothian cysts and small amount of fluid in the cervix. Right ovary: 2.5 x 1.7 x 2.7 cm Left ovary: 2.8 x 1.6 x 3.2 cm Both ovaries appear normal in vascular flow. IMPRESSION: 1. No intrauterine gestation identified. Borderline thickened and heterogeneous appearance of the endometrial canal. Correlate with follow-up quantitative hCG levels and short interval sonographic surveillance recommended if is confirmed. 2. Normal-appearing ovaries. Reviewed, dictated and finalized at location A. VIDUAL PENSION ADVISER
[2025-11-01 10:06] VITALS: BP 148/95; PULSE 84; RESP 16; TEMP 36.6; O2SAT 100
[2025-11-01 11:37] VITALS: BP 135/81; PULSE 79; RESP 15; O2SAT 99
--- NOTE | 2025-11-01 11:38 | PC.NURSE ---
patient educated on pelvic exam set up, patient in gown. Supplies for pelvic exam placed at bedside at this time
[2025-11-01 11:56] LABS: BEDSIDEPREGUCG Negative (Negative)
[2025-11-01 12:03] LABS: Hematocrit 41.1 % (37.0-47.0); Hemoglobin 13.5 g/dL (12.0-15.0); Immature Granulocyte Percent A 0.2 % (0-0.5); Lymphocytes Absolute Auto 3.07 K/mm3 (0.9-3.2); Mean Corpuscular HGB Conc 32.8 g/dl (32-36); Mean Corpuscular Hemoglobin 28.8 pg (26-34); Mean Corpuscular Volume 87.6 fl (80-100); Nucleated Red Blood Cells Absolute Auto 0.000 K/mm3 (0.0-0.012); Nucleated Red Blood Cells Perc 0.0 % (0.0-0.2); Platelet Count Result 331 k/mm3 (150-375); Red Blood Count 4.69 M/mm3 (4.2-5.4); White Blood Count 9.1 K/mm3 (4.5-10.0)
[2025-11-01 12:10] LABS: Add Urine Microscopic? YES; Appearance Urine Clear (Clear); Glucose Urine UA Negative (Negative); Leukocyte Esterase Ur Trace LEU/UL (Negative); Nitrate Urine Negative (Negative); Non Pathogenic Casts 0-2; Specific Grav Ur 1.002 (1.001-1.035)
[2025-11-01 12:14] VITALS: PULSE 77; RESP 20; O2SAT 99
[2025-11-01 12:14] LABS: INR 1.0; Prothrombin Time 13.3 Seconds (11.1-14.7)
[2025-11-01 12:15] LABS: Partial Thromboplastin Time 30.8 Seconds (22.3-36.8)
[2025-11-01 12:34] LABS: Alanine Aminotransferase 27 U/L (6-35); Albumin Level 4.9 g/dL (3.5-5.1); Alkaline Phosphatase 58 U/L (38-126); Anion Gap 10 mmol/L (4-12); Aspartate Amino Transferase 27 U/L (14-36); Bilirubin,Total 0.6 mg/dL (0.2-1.3); Blood Urea Nitrogen 6 mg/dL (7-17); Calcium 9.4 mg/dL (8.4-10.2); Carbon Dioxide 22 mmol/L (22-30); Chloride 107 mmol/L (98-107); Estimated CRCL calculation 145 ml/min; Estimated Glomerular Filt Rate > 60; Glucose 110 mg/dL (65-110); Potassium 3.8 mmol/L (3.4-5.0); Sodium 139 mmol/L (137-145); Total Protein 8.3 g/dL (6.3-8.2)
[2025-11-01 13:03] LABS: Beta HCG Quantitative 18.29 mIU/ML
--- NOTE | 2025-11-01 13:08 | ED_ITS ---
HPI - General Adult General Chief complaint: Vaginal Bleeding Stated complaint: vaginal bleeding, 5 weeks Time Seen by Provider: 11/01/25 11:19 Source: patient Mode of arrival: ambulatory Limitations: no limitations History of Present Illness HPI narrative: Patient is a 25-year-old female who presents the ED with report of possible miscarriage. Patient reports she is approximately 4 weeks 4 days gestation. . States she had her beta hCG level drawn yesterday it was only 26. Is planning to follow-up with Dr. Lou. She states she has had light brown vaginal spotting since discovered she was , however bleeding became heavier and more bright red today. She also reports having some cramping throughout her lower abdomen. Denies fevers. Related Data Home Medications ?Medication ?Instructions ?Recorded ?Confirmed ?Last Taken ?Type aspirin 81 mg tablet,delayed 81 mg PO DAILY 07/28/25 0 07/28/25 Unknown History release (Adult Low Dose Aspirin) Allergies Allergy/AdvReac Type Severity Reaction Status Date / Time No Known Allergies Allergy Verified 11/01/25 10:10 Review of Systems 2 Review of Systems: All systems reviewed & are unremarkable except as noted in HPI. All systems reviewed & are unremarkable except as noted in HPI and below PMFSH Past Medical History Medical History Mastalgia Overweight Anxiety Constipation Surgical History Surgical History H/O laparoscopy H/O gynecological procedure 2020 ~ cystoscopy Family History Family History Mother Medical history non-contributory Grandparent Breast cancer paternal grandmother Other Depression Social History Social History Smoking status: Never smoker Alcohol intake: never Substance use: never Substance use type: does not use Lack of Transportation: No Lack of Food: Never True Current Housing: I Have Housing Concerned About Future Housing: No Difficulty Paying Gas/Electric Bills: No Difficulty Paying for Meds: No Currently Unemployed: No Education: Trade/Vocational Certificate Difficulty w/ Childcare or Family Care: No Living arrangements: with family Additional living arrangements comments: Occupation/Education: occupation 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 HEAD: Normocephalic, atraumatic. RESPIRATORY: Airway patent, respirations nonlabored. Clear to auscultation bilaterally, no rales, rhonchi, wheezing. CARDIOVASCULAR: Regular rate and rhythm without murmurs, rubs, or gallops. ABDOMINAL: Soft, mild tenderness throughout lower abdomen, nondistended. Normoactive BS. MUSCULOSKELETAL: Moves all extremities. No gross deformities. SKIN: Warm, dry, normal color. NEURO: A&O X3. Speech clear. Cranial nerves II-XII grossly intact. Steady gait. No ataxic movements. PSYCHIATRIC: Appropriate mood and affect. Normal interaction. Course Vital Signs Vital signs: Vital Signs Temperature 97.8 F 11/01/25 10:06 Pulse Rate 84 11/01/25 10:06 Respiratory Rate 16 11/01/25 10:06 Blood Pressure 148/95 H 11/01/25 10:06 Pulse Oximetry 100 11/01/25 10:06 Oxygen Delivery Room Air 11/01/25 10:06 Temperature 97.8 F 11/01/25 10:06 Pulse Rate 73 11/01/25 13:50 Respiratory Rate 17 11/01/25 13:50 Blood Pressure 134/90 11/01/25 13:50 Pulse Oximetry 97 11/01/25 13:50 Oxygen Delivery Room Air 11/01/25 11:37 [facility] Narrative Medical decision making narrative: Patient presented to ED with vaginal bleeding, approximately 4 weeks gestation, concern for miscarriage. Reports beta hCG yesterday was only 26. Vital signs stable upon arrival. Patient in no acute jerrell distress. Beta hCG today is down to pending already to 18.29. Unfortunately with bleeding, discussed that this is consistent with spontaneous miscarriage. Remainder basic laboratory studies are reassuring. H&H is stable. UA without evidence of infection. Blood type is A positive, no indication for RhoGAM. Ob ultrasound was obtained and without evidence of any intrauterine gestation, normal appearing ovaries, thickened appearance of endometrial canal. Discussed lab and imaging findings, overall likelihood of spontaneous miscarriage. Discussed performing pelvic exam, however patient politely declined at this time. Recommended close follow- up with OBGYN for further evaluation repeat laboratory testing. Discussed bleeding precautions, strict return precautions. Patient in agreement with plan, feels comfortable going home. Discharged in stable condition. Differential Diagnosis Differential Diagnosis: Spontaneous , incomplete , subchorionic hematoma Medical Records I have reviewed the following patient records and this information was taken into consideration when formulating the assessment and plan.: previous labs, previous ER visits, previous hospitalizations and previous clinic visits Lab Data MDM Lab Attestation statement: I personally reviewed the patient's lab results. 11/01/25 11:52 11/01/25 11:52 Labs: Lab Results 11/01/25 11/01/25 Range/Units 11:52 11:53 WBC 9.1 (4.5-10.0) K/mm3 RBC 4.69 (4.2-5.4) M/mm3 Hgb 13.5 (12.0-15.0) g/dL Hct 41.1 (37.0-47.0) % MCV 87.6 (80-100) fl MCH 28.8 (26-34) pg MCHC 32.8 (32-36) g/dl RDW 11.9 (11.5-14.5) % Plt Count 331 (150-375) k/mm3 MPV 9.6 (7.4-10.4) fl Immature Gran % (Auto) 0.2 (0-0.5) % Neut % (Auto) 58.8 (45.5-73.1) % Lymph % (Auto) 33.7 (18.3-44.2) % [place] % (Auto) 5.2 (2.6-8.5) % Eos % (Auto) 1.3 (0-4.4) % Baso % (Auto) 0.8 (0.2-1.2) % Lymph # (Auto) 3.07 (0.9-3.2) K/mm3 [place] # (Auto) 0.5 (0.1-0.6) K/mm3 Eos # (Auto) 0.1 (0-0.3) K/mm3 Baso # (Auto) 0.1 (0.0-0.1) K/mm3 Abs Immat Gran (auto) 0.02 (0.00-0.031) K/mm3 Absolute Neuts (auto) 5.4 (1.3-6.7) K/mm3 Absolute Nucleated RBC 0.000 (0.0-0.012) K/mm3 Nucleated RBC % 0.0 (0.0-0.2) % PT 13.3 (11.1-14.7) Seconds INR 1.0 APTT 30.8 (22.3-36.8) Seconds Sodium 139 (137-145) mmol/L Potassium 3.8 (3.4-5.0) mmol/L Chloride 107 (98-107) mmol/L Carbon Dioxide 22 (22-30) mmol/L Anion Gap 10 (4-12) mmol/L BUN 6 L (7-17) mg/dL Creatinine 0.58 L (0.7-1.0) mg/dL Estim Creat Clear Calc 145 ml/min Estimated GFR > 60 (59 - ) Glucose 110 (65-110) mg/dL Calcium 9.4 (8.4-10.2) mg/dL Total Bilirubin 0.6 (0.2-1.3) mg/dL AST 27 (14-36) U/L ALT 27 (6-35) U/L Alkaline Phosphatase 58 (38-126) U/L Total Protein 8.3 H (6.3-8.2) g/dL Albumin 4.9 (3.5-5.1) g/dL Beta HCG, Quant 18.29 mIU/ML Urine Color Yellow (Yellow) Urine Appearance Clear (Clear) Urine pH 7.5 (5.0-9.0) Ur Specific [place] 1.002 (1.001-1.035) Urine Protein Negative (Negative) mg/dL Urine Glucose (UA) Negative (Negative) mg/dL Urine Ketones Negative (Negative) mg/dL Ur Blood (Man) 2+ H (Negative) Urine Nitrate Negative (Negative) Urine Bilirubin Negative (Negative) Urine Urobilinogen 0.2 (<2.0) mg/dL Leukocyte Esterase Rfl Trace H (Negative) GORAN/UL Urine RBC 3-5 H (0-2) /hpf Urine WBC 0-5 (0-3) /hpf Ur Squamous Epith Cells None seen (Few) /hpf Urine Bacteria None seen /hpf Urine Casts 0-2 POC Urine HCG, Qual Negative (Negative) Blood Type A Positive Antibody Screen Negative Screen Not Reportable Baby's Blood Type Not Reportable Baby's SAM Not Reportable Doses of RhIg Required 0 Imaging Data Attestation: I personally reviewed and interpreted this imaging study as follows: Radiologist's impression: ITS Impressions Obstetrics Ultrasound 11/01/25 13:15 IMPRESSION: 1. No intrauterine gestation identified. Borderline thickened and heterogeneous appearance of the endometrial canal. Correlate with follow-up quantitative hCG levels and short interval sonographic surveillance recommended if is confirmed. 2. Normal-appearing ovaries. Discharge Plan Discharge Clinical Impression: Spontaneous Patient Disposition: Home Condition: Stable Instructions: Antibiotic Form, Miscarriage (ED) Additional Instructions: Follow-up closely with your OBGYN for further evaluation. Call office to determine if you need sooner appointment. Continue to monitor bleeding. Return to the ED if you experience worsening or severe bleeding, unable to keep down food or drink, fevers, severe dizziness or lightheadedness, passing out, severe pain, or any other symptoms of concern. Patient Language: Surinamese Prescriptions: No Action aspirin [Adult Low Dose Aspirin] 81 mg tablet,delayed release (DR/EC) 81 mg PO DAILY norethindrone (contraceptive) [Wanda] 0.35 mg tablet 0.35 mg PO DAILY Qty: 84 3RF Follow-up/Referrals: Varun Tang MD [Primary Care Provider, Family Practice] Stephen Lou MD [Physician, POLE FRAME CONSTRUCTION WORKER] Referral Note: OBGYN Time of Disposition: 13:54
[2025-11-01 13:50] VITALS: BP 134/90; PULSE 73; RESP 17; O2SAT 97
[2025-11-01 14:17] VITALS: BP 134/77; PULSE 71; RESP 20; O2SAT 100
== END 2025-11-01 14:19 | disposition home or self-care (01) ==
PROVIDERS: Emergency Provider Physician Assistant; PCP Emergency Medicine
DX: O03.9 Complete or unspecified spontaneous abortion without complication (principal)
CPT/HCPCS: 36415; 76801; 76817; 80053; 81001; 81025; 84702; 85025; 85461; 85610; 85730; 86850; 86900; 86901; 99284

== ENCOUNTER 2025-11-03 10:16 | Outpatient (CLI) | payer OTHER, SELFPAY ==
[2025-11-03 11:26] LABS: Beta HCG Quantitative 3.25 mIU/ML
== END 2025-11-03 10:17 | disposition home or self-care (01) ==
LOC: ANHLAB 10:17
PROVIDERS: PCP Emergency Medicine; Visit Provider Obstetrics & Gynecology
DX: N92.6 Irregular menstruation, unspecified (principal)
CPT/HCPCS: 36415; 84702

== ENCOUNTER 2025-11-03 15:00 | Outpatient (CLI) | payer OTHER, SELFPAY ==
--- NOTE | ~2025-11-03 | US_ITS ---
EXAM/PROCEDURE: US OB <=14 wk fetus w TV HISTORY: O02.1 - Missed COMPARISON: November 01, 2025 TECHNIQUE: OB ultrasound FINDINGS: The uterus measures 7.3 x 3.1 x 4.7 cm. Endometrial stripe: 3.1 mm No intrauterine gestation identified. Both ovaries appear stable, normal in size position and echotexture. No free fluid is seen. EGA by dates 4 weeks 6 days IMPRESSION: No evidence of intrauterine gestation. Endometrial stripe significantly diminished in thickness in comparison with the previous exam. With EGA of 4 weeks 6 days, continued surveillance of quantitative hCG levels and short interval follow-up pelvic sonography recommended to evaluate for possible viability of early . Reviewed, dictated and finalized at location A. SIZER AND CUTTER OPERATOR IMPRESSION: No evidence of intrauterine gestation. Endometrial stripe significantly diminis hed in thickness in comparison with the previous exam. With EGA of 4 weeks 6 da ys, continued surveillance of quantitative hCG levels and short interval follow -up pelvic sonography recommended to evaluate for possible viability of early p regnancy.
== END 2025-11-03 15:01 | disposition home or self-care (01) ==
LOC: ANHIMG 15:03
PROVIDERS: PCP Emergency Medicine; Visit Provider Student in an Organized Health Care Education/Training Program
DX: O02.1 Missed abortion (principal); N93.9 Abnormal uterine and vaginal bleeding, unspecified
CPT/HCPCS: 76801; 76817